=== PATIENT | female | born 1950 | race Caucasian/White ===

== ENCOUNTER 2024-09-02 12:15 | Outpatient (CLI) | payer MEDICARE, SELFPAY ==
[2024-09-02 12:49] LABS: Basophils % 0.7 % (0.1-2.0); Eosinophils # 0.1 K/mm3 (0.0-0.4); Eosinophils % 2.6 % (0.1-12.0); Hematocrit 35.8 % (37.0-47.0); Hemoglobin 11.5 g/dL (12.2-16.2); Lymphocytes # 1.5 K/mm3 (0.7-4.5); Lymphocytes % 35.7 % (10-50); Mean Corpuscular HGB Conc 32.1 g/dL (31.8-35.4); Mean Corpuscular Hemoglobin 27.4 pg (27.0-31.2); Mean Corpuscular Volume 85.4 fl (81-99); Mean Platelet Volume 10.6 fl (7.4-10.4); Monocytes # 0.5 K/mm3 (0.1-1.0); Monocytes % 11.2 % (1.7-9.3); Neutrophils # 2.1 K/mm3 (1.8-7.8); Neutrophils % 49.8 % (37.0-80.0); Platelet Count 209 K/mm3 (142-424); Red Blood Count 4.19 M/mm3 (4.20-5.40); Reticulocyte % (Auto) 1.3 % (0.9-3.2); White Blood Count 4.2 K/mm3 (4.8-10.8)
[2024-09-02 13:23] LABS: Albumin Level 4.6 g/dl (3.5-5.0); Chloride 102 mmol/L (98-107); Sodium 137 mmol/L (136-145)
[2024-09-02 13:25] LABS: Blood Urea Nitrogen 15 mg/dl (7-17); Estimated Glomerular Filt Rate 61 ml/min (>60); GFR (African American) 74 ML/MIN (>60)
[2024-09-02 13:26] LABS: Alanine Aminotransferase 19 U/L (12-78); Albumin/Globulin Ratio 1.8 (1.1-1.8); Alkaline Phosphatase 95 U/L (38-126); Aspartate Amino Transferase 28 U/L (14-36); Bilirubin,Total 0.4 mg/dl (0.2-1.3); Calcium 9.7 mg/dl (8.4-10.2); Carbon Dioxide 30 mmol/L (22.0-30.0); Globulin 2.5 g/dL (1.3-3.2); Glucose 105 mg/dl (74-100); Iron 57 ug/dL (37-170); Total Protein,Serum 7.1 g/dl (6.3-8.2)
[2024-09-02 13:51] LABS: Total Iron Binding Capacity 442 ug/dL (265-497)
[2024-09-02 14:12] LABS: Thyroid Stimulating Hormone 0.03 uIU/mL (0.465-4.68)
[2024-09-02 14:16] LABS: Ferritin 6.02 ng/ml (11.1-264)
[2024-09-02 14:29] LABS: Lactate Dehydrogenase 194 U/L (313-618)
[2024-09-02 15:20] LABS: Vitamin B12 387 pg/mL (239-931)
[2024-09-03 05:12] LABS: Haptoglobin 151 mg/dL (42-346)
[2024-09-04 12:21] LABS: Peripheral Smear Review Scanned Result
== END 2024-09-02 23:59 | disposition home or self-care (01) ==
LOC: LAB 12:16
PROVIDERS: Visit Provider Internal Medicine Medical Oncology
DX: D64.9 Anemia, unspecified (principal)
CPT/HCPCS: 36415; 80053; 82607; 82728; 82746; 83010; 83540; 83550; 83615; 84443; 85025; 85044; 86880

== ENCOUNTER 2024-11-04 11:06 | Outpatient (CLI) | payer MEDICARE, SELFPAY ==
--- OUTSIDE RECORDS SUMMARY | 2024-11-01 22:18 | XMS_ITS | Continuity of Care Document ---
Author Organization [facility] Phone Care Team Providers Care Auto Mechanic Supervisor Name Role Phone STEVEN LILLY Primary Attending MAYURI PEARCE Primary Care NASIR FAYE Unavailable Unavail able DAI EPSTEIN Surgeon Unavailable NASIR FAYE Surgeon Unavail able STEVEN LILLY Admitting NASIR FAYE Unavailable Unavail able ALLERGIES AND ADVERSE REACTIONS ALLERGIES AND ADVERSE REACTIONS Code System Allergy Substance Adverse Reaction Date Reaction (Severity) Comment Status Reported By Updated By GLUTEN (Free Text Allergy) Adverse reaction to substance unknown active [id number] on September 15, 2024 2:19:16 PM UT ASSESSMENTS Arthritis of left knee ; Essential hypertension ; Hyperlipidemia ; Total knee replacement ; PROBLEMS PATIENT PROBLEMS Code Description/Comments Category Status Upda denisse By [id number] Arthritis of left knee active [id number] on September 16, 2024 3:31:52 PM UT [id number] Essential hypertension active dw [id number] on September 16, 2024 6:25:42 PM UT [id number] Hyperlipidemia active [id number] on September 16, 2024 6:25:42 PM UT [id number] Total knee replacement active dw [id number] on September 16, 2024 6:25:42 PM UT RESULTS Patient: FREDO ESPINOSA Date of : [birth year] 8 LABORATORY RESULTS ORDER 300: TYPE/SCREEN (SHAWIN C: 48068-3) ORDER DATE: September 15, 2024 2:18:00 PM UTC Specimen Source: SERUM Specimen Type: Serum specime n PERFORMING LAB: [address] [id number] Result Comment: Final Result Date: September 16, 2024 10:00:00 AM UT (TECH: gfa) LOINC TEST FLAG [place] [address]-6 History of Procedure N Completed September 16, 2024 10:00:00 AM UTC (TECH: HL7) 97367-5 ABO and Rh group panel - Blood N A POSITIVE September 16, 2024 10:00:00 AM UTC (TECH: HL7) 890-4 Blood group antibody screen [Presence] in Serum or Plasma N NEGATIVE September 16, 2024 10:00:00 AM UTC (TECH: HL7) 01270-9 PROMIS item bank - cognitive function - version 2.0 N Completed September 16, 2024 10:00:00 AM UTC (TECH: gfa) ORDER 600: CELL COUNT AND DI FF BODY FLUID (LOINC: 60443-5) ORDER DATE: September 16, 2024 3:10:00 PM UTC Specimen Source: BODY FLUID Specimen Type: Body fluid sa mple PERFORMING LAB: [address] [id number] Result Comment: Final Result Date: September 16, 2024 6:29:00 PM UTC (TECH: ADB) LOINC TEST FLAG RES[place] [address]-6 Specimen source [Identifier] of Body fluid N SYNOVIAL September 16, 2024 6:29:00 PM UTC (TECH: ADB) 6824-7 Color of Body fluid N STRAW September 16, 2024 6:29:00 PM UTC (TECH: ADB) 9335-1 Appearance of Body fluid N SLIGHTLY HAZY September 16, 2024 6:29:00 PM UTC (TECH: ADB) 39164-6 Erythrocytes [#/volu me] in Body fluid N 1000 September 16, 2024 6:29:00 PM UTC (TECH: ADB) 23173-2 Leukocytes [#/volume ] in Body fluid H 520 #/uL 0 #/uL - 30 #/uL September 16, 2024 6:29:00 PM UTC (TECH: ADB) 50808-4 Polymorphonuclear cells/100 leukocytes in Body fluid N 2 % September 16, 2024 6:29:00 PM UTC (TECH: ADB) 92692-6 Lymphocytes [#/volum e] in Body fluid N 98 % September 16, 2024 6:29:00 PM UTC (TECH: ADB) 54895-6 Mononuclear cells [#/volume] in Body fluid N 0 % September 16, 2024 6:29:00 PM UTC (TECH: ADB) ORDER 900: GRAM STAIN (LOINC : 664-3) ORDER DATE: September 16, 2024 3:25:00 PM UTC Specimen Source: BODY FLUID Specimen Type: Body fluid sa mple PERFORMING LAB: [address] [id number] Result Comment: Final Result Date: September 17, 2024 1:35:00 PM UTC (TECH: AAC) LOINC TEST FLAG [place] [address]-3 Specimen source [Identifier] of Unspecified specimen N SYNOVIAL FLUID September 17, 2024 1:35:00 PM UTC (TECH: AAC) 664-3 Microscopic observation [Identifier] in Unspecified specimen by Gram stain N NO ORGANISMS September 17, 2024 1:35:00 PM UTC (TECH: AAC) 62120-5 Morphology [interpretation] in Blood Narrative N SEEN September 17 1:35:00 PM UTC (TECH: AAC) 76385-4 Leukocytes [Presence] in Unspecified specimen by Gram stain N OCCASIONAL September 17, 2024 1:35:00 PM UTC (TECH: AAC) 69980-0 Epithelial cells [Presence] in Unspecified specimen by Gram stain N NONE SEEN September 17, 2024 1:35:00 PM UTC (TECH: AAC) 53638-3 Yeast [Presence] in Unspecified specimen by Wet preparation N NO YST SEEN September 17, 2024 1:35:00 PM UTC (TECH: AAC) 65293-2 Gram positive bacteria identified [Interpretation] by Probe in Positive blood culture N PASS PASS September 17, 2024 1:35:00 PM UTC (TECH: AAC) 32274-2 Gram negative bacilli identified in Isolate by Organism specific culture N PASS PASS September 17, 2024 1:35:00 PM UTC (TECH: AAC) ORDER 1000: AFB SMEAR CULTUR E (LOINC: 8100-0) ORDER DATE: September 16, 2024 3:25:00 PM UTC Specimen Source: BODY FLUID Specimen Type: Body fluid sa mple PERFORMING LAB: [address] [id number] Result Comment: Final Result Date: September 16, 2024 3:17:00 PM UTC LOINC TEST FLAG RESULT [place] [address]-3 Mycobacterium sp [Presence] in Unspecified specimen by Organism specific culture N Negative September 16, 2024 3:17:00 PM UTC (TECH: LAB) 69216-3 Microscopic observation [Identifier] in Unspecified specimen by Acid fast stain N Negative September 16, 2024 3:17:00 PM UTC (TECH: LAB) 8100-0 Specimen preparation [Type] of Unspecified specimen N Direct Inoculation September 16, 2024 3:17:00 PM UTC ORDER 2600: GRAM STAIN (LOIN C: 664-3) ORDER DATE: September 16, 2024 3:38:00 PM UTC Specimen Source: GRAM STAIN Specimen Type: Gram stain me thod PERFORMING LAB: [address] [id number] Result Comment: Final Result Date: September 17, 2024 1:38:00 PM UTC (TECH: AAC) LOINC TEST FLAG [place] [address]-4 Specimen source [Identifier] of Unspecified specimen N SYNOVIAL TISS September 17, 2024 1:38:00 PM UTC (TECH: AAC) 664-3 Microscopic observation [Identifier] in Unspecified specimen by Gram stain N NO ORGANISMS September 17, 2024 1:38:00 PM UTC (TECH: AAC) 08816-6 Morphology [interpretation] in Blood Narrative N SEEN September 17 1:38:00 PM UTC (TECH: AAC) 15339-7 Leukocytes [Presence] in Unspecified specimen by Gram stain N NONE SEEN September 17, 2024 1:38:00 PM UTC (TECH: AAC) 90027-7 Epithelial cells [Presence] in Unspecified specimen by Gram stain N NONE SEEN September 17, 2024 1:38:00 PM UTC (TECH: AAC) 88800-9 Yeast [Presence] in Unspecified specimen by Wet preparation N NO YST SEEN September 17, 2024 1:38:00 PM UTC (TECH: AAC) 32047-6 Gram positive bacteria identified [Interpretation] by Probe in Positive blood culture N PASS PASS September 17, 2024 1:38:00 PM UTC (TECH: AAC) 40650-4 Gram negative bacilli identified in Isolate by Organism specific culture N PASS PASS September 17, 2024 1:38:00 PM UTC (TECH: AAC) ORDER 2700: AFB SMEAR CULTUR E (LOINC: 8100-0) ORDER DATE: September 16, 2024 3:38:00 PM UTC Specimen Source: SWAB Specimen Type: Swab PERFORMING LAB: [address] [id number] Result Comment: Final Result Date: September 16, 2024 3:30:00 PM UTC (TECH: LAB) LOINC TEST FLAG RES[place] [address]-0 Mycobacterium sp [Presence] in Unspecified specimen by Organism specific culture N Negative September 16, 2024 3:30:00 PM UTC (TECH: LAB) 38836-2 Microscopic observation [Identifier] in Unspecified specimen by Acid fast stain N Negative September 16, 2024 3:30:00 PM UTC (TECH: LAB) 8100-0 Specimen preparation [Type] of Unspecified specimen N Tissue Grinding September 16, 2024 3:30:00 PM UTC (TECH: LAB) ORDER 2800: CULTURE FUNGUS ( LOINC: 580-1) ORDER DATE: September 16, 2024 3:38:00 PM UTC Specimen Source: SWAB Specimen Type: Swab PERFORMING LAB: [address] [id number] Result Comment: October 15, 2024 3:11:00 PM UTC No yeast or mold isolated after 4 weeks. Result Comment: October 15, 2024 3:11:00 PM UTC Performed at: [facility] Result Comment: October 15, 2024 3:11:00 PM UTC [address] [place] [address] [phone] Result Comment: October 15, 2024 3:11:00 PM UTC Jackscrew Man: Rhys Alcala PhD, Phone: [phone] Result Comment: October 15, 2024 3:11:00 PM UTC Final Result Date: September 16, 2024 3:30:00 PM UTC (TECH: LAB) LOINC TEST FLAG RESULT REFERENCE RANGE UPDA DENISSE BY 580-1 Fungus identified in Unspecified specimen by Culture N Final report September 16 3:30:00 PM UTC (TECH: LAB) 93324-2 Fungus identified in Unspecified specimen N Comment September 16, 2024 3:30:00 PM UTC (TECH: LAB) ORDER 2900: AFB SMEAR CULTUR E (LOINC: 8100-0) ORDER DATE: September 16, 2024 3:45:00 PM UTC Specimen Source: SWAB Specimen Type: Swab PERFORMING LAB: [address] [id number] Result Comment: Final Result Date: September 16, 2024 3:30:00 PM UTC (TECH: LAB) LOINC TEST FLAG RESULT [place] [address]-6 Mycobacterium sp [Presence] in Unspecified specimen by Organism specific culture N Negative September 16, 2024 3:30:00 PM UTC (TECH: LAB) 25003-4 Microscopic observation [Identifier] in Unspecified specimen by Acid fast stain N Negative September 16, 2024 3:30:00 PM UTC (TECH: LAB) 8100-0 Specimen preparation [Type] of Unspecified specimen N Tissue Grinding September 16, 2024 3:30:00 PM UTC (TECH: LAB) ORDER 3100: CULTURE FUNGUS ( LOINC: 580-1) ORDER DATE: September 16, 2024 3:45:00 PM UTC Specimen Source: SWAB Specimen Type: Swab PERFORMING LAB: [address] [id number] Result Comment: October 15, 2024 3:11:00 PM UTC No yeast or mold isolated after 4 weeks. Result Comment: October 15, 2024 3:11:00 PM UTC Performed at: [facility] Result Comment: October 15, 2024 3:11:00 PM UTC [address] [place] [address] [id number] Result Comment: October 15, 2024 3:11:00 PM UTC Jackscrew Man: Rhys Alcala PhD, Phone: [phone] Result Comment: October 15, 2024 3:11:00 PM UTC Final Result Date: September 16, 2024 3:30:00 PM UTC (TECH: LAB) LOINC TEST FLAG RESULT REFERENCE RANGE UPDA DENISSE BY 580-1 Fungus identified in Unspecified specimen by Culture N Final report September 16 3:30:00 PM UTC (TECH: LAB) 13773-4 Fungus identified in Unspecified specimen N Comment September 16, 2024 3:30:00 PM UTC (TECH: LAB) ORDER 3300: GRAM STAIN (LOIN C: 664-3) ORDER DATE: September 16, 2024 3:45:00 PM UTC Specimen Source: GRAM STAIN Specimen Type: Gram stain me thod PERFORMING LAB: [address] [id number] Result Comment: Final Result Date: September 17, 2024 1:39:00 PM UTC (TECH: AAC) LOINC TEST FLAG RESULT [place] [address]-9 Specimen source [Identifier] of Unspecified specimen N SYNOVIAL TISS September 17, 2024 1:39:00 PM UTC (TECH: AAC) 664-3 Microscopic observation [Identifier] in Unspecified specimen by Gram stain N NO ORGANISMS September 17, 2024 1:39:00 PM UTC (TECH: AAC) 21143-5 Morphology [interpretation] in Blood Narrative N SEEN September 17 1:39:00 PM UTC (TECH: AAC) 89820-9 Leukocytes [Presence] in Unspecified specimen by Gram stain N OCCASIONAL September 17, 2024 1:39:00 PM UTC (TECH: AAC) 52220-3 Epithelial cells [Presence] in Unspecified specimen by Gram stain N NONE SEEN September 17, 2024 1:39:00 PM UTC (TECH: AAC) 45193-2 Yeast [Presence] in Unspecified specimen by Wet preparation N NO YST SEEN September 17, 2024 1:39:00 PM UTC (TECH: AAC) 06321-8 Gram positive bacteria identified [Interpretation] by Probe in Positive blood culture N PASS PASS September 17, 2024 1:39:00 PM UTC (TECH: AAC) 23728-7 Gram negative bacilli identified in Isolate by Organism specific culture N PASS PASS September 17, 2024 1:39:00 PM UTC (TECH: AAC) ORDER 3400: AFB SMEAR CULTUR E (LOINC: 8100-0) ORDER DATE: September 16, 2024 3:46:00 PM UTC Specimen Source: SWAB Specimen Type: Swab PERFORMING LAB: [address] [id number] Result Comment: Final Result Date: September 16, 2024 3:30:00 PM UTC (TECH: LAB) LOINC TEST FLAG RESULT [place] [address]-6 Mycobacterium sp [Presence] in Unspecified specimen by Organism specific culture N Negative September 16, 2024 3:30:00 PM UTC (TECH: LAB) 86814-8 Microscopic observation [Identifier] in Unspecified specimen by Acid fast stain N Negative September 16, 2024 3:30:00 PM UTC (TECH: LAB) 8100-0 Specimen preparation [Type] of Unspecified specimen N Tissue Grinding September 16, 2024 3:30:00 PM UTC (TECH: LAB) ORDER 3600: CULTURE FUNGUS ( LOINC: 580-1) ORDER DATE: September 16, 2024 3:46:00 PM UTC Specimen Source: SWAB Specimen Type: Swab PERFORMING LAB: [address] [id number] Result Comment: October 15, 2024 3:11:00 PM UTC No yeast or mold isolated after 4 weeks. Result Comment: October 15, 2024 3:11:00 PM UTC Performed at: [facility] Result Comment: October 15, 2024 3:11:00 PM UTC [address] [place] [address] [phone] Result Comment: October 15, 2024 3:11:00 PM UTC Jackscrew Man: Rhys Alcala PhD, Phone: [phone] Result Comment: October 15, 2024 3:11:00 PM UTC Final Result Date: September 16, 2024 3:30:00 PM UTC (TECH: LAB) LOINC TEST FLAG RESULT REFERENCE RANGE UPDA DENISSE BY 580-1 Fungus identified in Unspecified specimen by Culture N Final report September 16 3:30:00 PM UTC (TECH: LAB) 65844-1 Fungus identified in Unspecified specimen N Comment September 16, 2024 3:30:00 PM UTC (TECH: LAB) ORDER 3800: GRAM STAIN (LOIN C: 664-3) ORDER DATE: September 16, 2024 3:46:00 PM UTC Specimen Source: GRAM STAIN Specimen Type: Gram stain me thod PERFORMING LAB: [address] [id number] Result Comment: Final Result Date: September 17, 2024 1:36:00 PM UTC (TECH: AAC) LOINC TEST FLAG RESULT [place] [address]-9 Specimen source [Identifier] of Unspecified specimen N SYNOVIAL TISS September 17, 2024 1:36:00 PM UTC (TECH: AAC) 664-3 Microscopic observation [Identifier] in Unspecified specimen by Gram stain N NO ORGANISMS September 17, 2024 1:36:00 PM UTC (TECH: AAC) 54219-8 Morphology [interpretation] in Blood Narrative N SEEN September 17 1:36:00 PM UTC (TECH: AAC) 64514-1 Leukocytes [Presence] in Unspecified specimen by Gram stain N OCCASIONAL September 17, 2024 1:36:00 PM UTC (TECH: AAC) 81295-7 Epithelial cells [Presence] in Unspecified specimen by Gram stain N NONE SEEN September 17, 2024 1:36:00 PM UTC (TECH: AAC) 70691-0 Yeast [Presence] in Unspecified specimen by Wet preparation N NO YST SEEN September 17, 2024 1:36:00 PM UTC (TECH: AAC) 10458-5 Gram positive bacteria identified [Interpretation] by Probe in Positive blood culture N PASS PASS September 17, 2024 1:36:00 PM UTC (TECH: AAC) 46669-4 Gram negative bacilli identified in Isolate by Organism specific culture N PASS PASS September 17, 2024 1:36:00 PM UTC (TECH: AAC) ORDER 5100: FUNGAL ANTIBODIE S DID (LOINC: 14712-0) ORDER DATE: September 17, 2024 7:51:00 PM UTC Specimen Source: SERUM Specimen Type: Serum specime n PERFORMING LAB: [address] [id number] Result Comment: September 21 5:08:00 PM UTC Performed at: [facility] Result Comment: September 21, 2024 5:08:00 PM UTC [address] [place] [address] [id number] Result Comment: September 21, 2024 5:08:00 PM UTC Jackscrew Man: Tristan Mendez MD, Phone: [phone] Result Comment: September 21, 2024 5:08:00 PM UTC Final Result Date: September 16, 2024 12:20:00 PM UTC (TECH: LAB) LOINC TEST FLAG RESULT [place] [address]-0 Aspergillus fumigatu s Ab [Presence] in Serum by Immune diffusion (ID) N Negative Neg:<1:1 September 16, 2024 12:20:00 PM UTC (TECH: LAB) 76783-5 Aspergillus flavus A b [Presence] in Serum by Immune diffusion (ID) N Negative Neg:<1:1 September 16, 2024 12:20:00 PM UTC (TECH: LAB) 35703-7 Aspergillus niger Ab [Presence] in Serum by Immune diffusion (ID) N Negative Neg:<1:1 September 16, 2024 12:20:00 PM UTC (TECH: LAB) 13786-3 Blastomyces dermatit idis Ab [Titer] in Serum N Negative Neg:<1:1 September 16 12:20:00 PM UTC (TECH: LAB) LABORATORY NARRATIVE RESULTS Information is not available RADIOLOGY RESULTS Information is not available PATHOLOGY NARRATIVE RESULTS ORDER 3900: PATHOLOGY SPECIM EN (LOINC: 75287-1) ORDER DATE: September 16, 2024 3:47:00 PM UTC Specimen Source: PATH Specimen Type: Refer to path ology laboratory PERFORMING LAB: [address] [id number] Final Result Date: September 17, 2024 9:38:00 PM UTC TEST: PATHOLOGY SPECIMEN MICROBIOLOGY RESULTS No Micro Labs/Results Exist for Patient BLOOD ADMIN RESULTS Information is not available TREATMENT PLAN DISCHARGE MEDICATIONS Status RXNORM Medication Dose Route Frequency Dates Comments U pdated By Continued 244430 Olmesartan Medoxomil-HCTZ Oral Tablet 20-12.5 MG 1 TAB ORAL ONCE DAILY Prescri bed: September 16, 2024 10:15:4 4 PM UT [id number] on September 16, 2024 10:15:44 PM UT Continued 057539 Montelukast Sodium Oral Tablet 10 MG 10 MG ORAL ONCE DAILY Prescri bed: September 16, 2024 10:15:4 4 PM UT [id number] on September 16, 2024 10:15:44 PM UT Continued 0367547 Melatonin ER Ora l Tablet Extended Release 10 MG 10 MG ORAL AT BEDTIME Prescri bed: September 16, 2024 10:15:4 4 PM UT [id number] on September 16, 2024 10:15:44 PM UT Continued Magnesium Citrat e Oral Tablet 200 MG 800 MG ORAL ONCE DAILY Prescri bed: September 16, 2024 10:15:4 4 PM [facility] [id number] on September 16, 2024 10:15:44 PM [facility] Continued 742960 Levocetirizine Dihydrochloride Oral Tablet 5 MG 5 MG ORAL ONCE DAILY Prescri bed: September 16, 2024 10:15:4 4 PM [facility] [id number] on September 16, 2024 10:15:44 PM [facility] Continued 752342 LORazepam Oral Tablet 2 MG 2 MG ORAL AT BEDTIME Prescri bed: September 16, 2024 10:15:4 4 PM [facility] [id number] on September 16, 2024 10:15:44 PM [facility] Continued 004464 Calcium + Vitami n D3 Oral Tablet 600-10 MG-MCG 1 TAB ORAL ONCE DAILY Prescri bed: September 16, 2024 10:15:4 4 PM [facility] [id number] on September 16, 2024 10:15:44 PM [facility] Continued 683638 Synthroid Oral Tablet 125 MCG 125 MCG ORAL ONCE DAILY Prescri bed: September 16, 2024 10:15:4 4 PM [facility] [id number] on September 16, 2024 10:15:44 PM [facility] Continued 026361 Rosuvastatin Calcium Oral Tablet 20 MG 20 MG ORAL ONCE DAILY Prescri bed: September 16, 2024 10:15:4 4 PM [facility] [id number] on September 16, 2024 10:15:44 PM [facility] Continued 617129 Omeprazole Oral Capsule Delayed Release 40 MG 40 MG ORAL ONCE DAILY Prescri bed: September 16, 2024 10:15:4 4 PM [facility] [id number] on September 16, 2024 10:15:44 PM [facility] PATIENT OPEN ORDERS Code System Description Frequency Occurrences Priority Start Date Ordering Physician Updated By Patient open order informati on is not available. SCHEDULED PROCEDURES Code System Description Status Scheduled Date Upd ated By Patient scheduled procedure information is not available. MEDICATIONS HOME MEDICATIONS Status RXNORM [facility] Medication Dose Route Frequency Dates Comments Reported By Updated By Active 018193 29725 23125 0 Omeprazole Oral Capsule Delayed Release 40 MG 40.0 MG ORAL DAILY Last Dose: September 16, 2024 9:30:0 0 AM [facility] [id number] on September 16, 2024 12:09:46 PM [facility] Active 559725 18529 01977 3 Olmesartan Medoxomil-HC TZ Oral Tablet 20-12.5 MG 1.0 TAB ORAL DAILY Last Dose: September 16, 2024 9:30:0 0 AM [facility] [id number] on September 16, 2024 12:09:36 PM [facility] Active 70816 99367 0 Calcium + Vitamin D3 Oral Tablet 600-10 MG-MCG 1.0 TAB ORAL DAILY Last Dose: September 16, 2024 12:00: 00 AM [facility] [id number] on September 16, 2024 12:07:14 PM [facility] Active 929085 05476 31880 1 Rosuvastatin Calcium Oral Tablet 20 MG 20.0 MG ORAL DAILY Last Dose: September 16, 2024 12:00: 00 AM [facility] [id number] on September 16, 2024 12:10:10 PM [facility] Active 227051 38121 49931 9 Synthroid Oral Tablet 125 MCG 125.0 MCG ORAL DAILY Last Dose: September 16, 2024 12:00: 00 AM [facility] [id number] on September 16, 2024 12:10:26 PM [facility] Active 884305 83535 42020 0 Montelukast Sodium Oral Tablet 10 MG 10.0 MG ORAL DAILY Last Dose: September 16, 2024 12:00: 00 AM [facility] [id number] on September 16, 2024 12:08:42 PM [facility] Active 327097 63619 65041 0 Levocetirizi ne Dihydrochlor felipe Oral Tablet 5 MG 5.0 MG ORAL DAILY Last Dose: September 16, 2024 12:00: 00 AM [facility] [id number] on September 16, 2024 12:07:54 PM [facility] Active 81084 77441 0 Magnesium Citrate Oral Tablet 200 MG 800.0 MG ORAL DAILY Last Dose: September 16, 2024 12:00: 00 AM [facility] [id number] on September 16, 2024 12:08:14 PM [facility] Active 966161 76242 76441 5 LORazepam Oral Tablet 2 MG 2.0 MG ORAL BEDTIME Last Dose: September 16, 2024 12:00: 00 AM [facility] [id number] on September 16, 2024 12:08:06 PM [facility] Active 0495332 46352 19332 8 Melatonin ER Oral Tablet Extended Release 10 MG 10.0 MG ORAL BEDTIME Last Dose: September 16, 2024 12:00: 00 AM [facility] [id number] on September 16, 2024 12:08:27 PM [facility] Active 732828 86760 82590 8 traMADol HCl Oral Tablet 50 MG 50.0 MG ORAL PRN Last Dose: September 12, 2024 11:00: 00 AM UT takes as needed for pain [id number] on September 16, 2024 3:37:35 PM UT DISCHARGE MEDICATIONS Status RXNORM [facility] Medication Dose Route Frequency Dates Comments Physician Updated By Continue d 108612 9507 7090 103 Olmesartan Medoxomil-H CTZ Oral Tablet 20-12.5 MG 1.0 TAB ORAL ONCE DAILY Prescr ibed: September 16, 2024 10:15: 44 PM UT AGUILAR DUNG A PA [id number] on September 16, 2024 10:15:44 PM UT Continue d 273002 6595 8008 130 Montelukast Sodium Oral Tablet 10 MG 10.0 MG ORAL ONCE DAILY Prescr ibed: September 16, 2024 10:15: 44 PM UT AGUILAR DUNG A PA [id number] on September 16, 2024 10:15:44 PM UT Continue d 2886799 1487 5028 028 Melatonin ER Oral Tablet Extended Release 10 MG 10.0 MG ORAL AT BEDTIME Prescr ibed: September 16, 2024 10:15: 44 PM UT AGUILAR DUNG A PA [id number] on September 16, 2024 10:15:44 PM UT Continue d 3373 9001 290 Magnesium Citrate Oral Tablet 200 MG 800.0 MG ORAL ONCE DAILY Prescr ibed: September 16, 2024 10:15: 44 PM UT AGUILAR DUNG A PA [id number] on September 16, 2024 10:15:44 PM UT Continue d 322560 1019 4 690 Levocetiriz ine Dihydrochlo ride Oral Tablet 5 MG 5.0 MG ORAL ONCE DAILY Prescr ibed: September 16, 2024 10:15: 44 PM UT AGUILAR DUNG A PA [id number] on September 16, 2024 10:15:44 PM UT Continue d 449178 9497 4077 405 LORazepam Oral Tablet 2 MG 2.0 MG ORAL AT BEDTIME Prescr ibed: September 16, 2024 10:15: 44 PM UT AGUILAR DUNG A PA [id number] on September 16, 2024 10:15:44 PM UTC Continue d 140446 6206 5007 660 Calcium + Vitamin D3 Oral Tablet 600-10 MG-MCG 1.0 TAB ORAL ONCE DAILY Prescr ibed: September 16, 2024 10:15: 44 PM UT JEFF MORILLO [id number] on September 16, 2024 10:15:44 PM UT Continue d 600637 3067 4706 819 Synthroid Oral Tablet 125 MCG 125.0 MCG ORAL ONCE DAILY Prescr ibed: September 16, 2024 10:15: 44 PM UT AGUILAR DUNG Lor MORILLO [id number] on September 16, 2024 10:15:44 PM UTC Continue d 531570 2899 5058 481 Rosuvastati n Calcium Oral Tablet 20 MG 20.0 MG ORAL ONCE DAILY Prescr ibed: September 16, 2024 10:15: 44 PM UT AGUILAR DUNG MORILLO [id number] on September 16, 2024 10:15:44 PM UT Continue d 614690 1125 5014 600 Omeprazole Oral Capsule Delayed Release 40 MG 40.0 MG ORAL ONCE DAILY Prescr ibed: September 16, 2024 10:15: 44 PM [facility] AGUILAR DUNG Horowitz YISEL [id number] on September 16, 2024 10:15:44 PM [facility] INPATIENT MEDICATIONS Status RXNORM [facility] Medication Dose Route Frequency Rat e Quantity Dates Comments Physician Updated By Thao inued [id number] 9553 3716 601 celeCOXIB (CeleBREX) 200 MG CAPS 400.0 MG ORAL ONE TIME ADMINISTRA TION (UNSCHEDUL ED) Start: September 16, 2024 10:00: 00 AM UT End: September 16, 2024 12:18: 41 PM [facility] JORGE PHOENIX [id number] on September 16, 2024 12:18:00 PM [facility] Discont inued 0090 4673 061 acetaminoph en (TYLENOL) 500 MG TABS 1000. 0 MG ORAL ONE TIME ADMINISTRA TION (UNSCHEDUL ED) Start: September 16, 2024 10:00: 00 AM UT End: September 16, 2024 12:18: 42 PM [facility] JORGE PHOENIX [id number] on September 16, 2024 12:18:00 PM UT Discont inued [id number] 5538 2100 001 tranexamic acid (CYKLOKAPRO N) 1000 MG SOLN 1000. 0 MG INTRAV ENOUS ONE TIME ONLY (SCHEDULED DOSE) 300.0 ML/HR Start: September 16, 2024 10:00: 00 AM UTC End: September 16, 2024 10:15: 44 PM UTC JORGE ALBAN [id number] on September 17, 2024 4:25:00 AM UTC Discont inued [id number] 5285 8004 941 sodium chloride 0.9% SOLN 50.0 ML INTRAV ENOUS ONE TIME ONLY (SCHEDULED DOSE) 300.0 ML/HR Start: September 16, 2024 10:00: 00 AM UTC End: September 16, 2024 10:15: 44 PM UTC JORGE ALBAN [id number] on September 17, 2024 4:25:00 AM UTC Discont inued [id number] 4904 2100 001 tranexamic acid (CYKLOKAPRO N) 1000 MG SOLN 1000. 0 MG INTRAV ENOUS ONE TIME ONLY (SCHEDULED DOSE) 300.0 ML/HR Start: September 16, 2024 10:00: 00 AM UTC End: September 16, 2024 12:18: 42 PM UTC JORGE ALBAN [id number] on September 16, 2024 12:18:00 PM UTC Discont inued [id number] 7743 8004 941 sodium chloride 0.9% SOLN 50.0 ML INTRAV ENOUS ONE TIME ONLY (SCHEDULED DOSE) 300.0 ML/HR Start: September 16, 2024 10:00: 00 AM UTC End: September 16, 2024 12:18: 42 PM UTC JORGE ALBAN [id number] on September 16, 2024 12:18:00 PM UTC Discont inued [id number] 3739 5623 105 ceFAZolin (ANCEF) 2 GM SOLR 2.0 GM INTRAV ENOUS ONE TIME ADMINISTRA TION (UNSCHEDUL ED) Start: September 16, 2024 10:00: 00 AM UTC End: September 16, 2024 12:28: 48 PM UTC JORGE ALBAN [id number] on September 16, 2024 12:28:00 PM UTC Discont inued [id number] 5820 8011 704 LACTATED RINGERS SOLN 1000. 0 ML INTRAV ENOUS ONE TIME ADMINISTRA TION (UNSCHEDUL ED) 25.0 ML/HR Start: September 15, 2024 4:41:0 0 PM UTC End: September 16, 2024 12:18: 40 PM UTC LAQUITA SALGADO Radha [id number] on September 16, 2024 12:18:00 PM UTC Discont inued [id number] 0155 8011 704 LACTATED RINGERS SOLN 1000. 0 ML INTRAV ENOUS ONE TIME ONLY (PACU) 25.0 ML/HR Start: September 15, 2024 4:41:0 0 PM UTC End: September 16, 2024 6:29:2 8 PM UTC COELHOAV Garcia [id number] on September 16, 2024 6:29:00 PM UTC Discont inued [id number] 0040 9117 630 meperidine (DEMEROL) 25 MG/ML SOLN 12.5 MG INTRAV ENOUS NEEDED (PACU) Start: September 15, 2024 4:41:0 0 PM UTC End: September 16, 2024 6:29:2 8 PM UTC LAQUITA Garcia [id number] on September 16, 2024 6:29:00 PM UTC Discont inued [id number] 0040 9117 630 meperidine (DEMEROL) 25 MG/ML SOLN 25.0 MG INTRAV ENOUS NEEDED (PACU) Start: September 15, 2024 4:41:0 0 PM UTC End: September 16, 2024 6:29:2 8 PM UTC LAQUITA Garcia [id number] on September 16, 2024 6:29:00 PM UTC Discont inued [id number] 0064 1624 725 fentaNYL (SUBLIMAZE) 50 MGC/ML SOLN 25.0 MCG INTRAV ENOUS EVERY 5 MINUTES NEEDED (PACU) Start: September 15, 2024 4:41:0 0 PM UTC End: September 16, 2024 6:29:2 8 PM UTC LAQUITA Garcia [id number] on September 16, 2024 6:29:00 PM UTC Discont inued 6960081 0064 1624 725 fentaNYL (SUBLIMAZE) 50 MGC/ML SOLN 50.0 MCG INTRAV ENOUS EVERY 5 MINUTES NEEDED (PACU) Start: September 15, 2024 4:41:0 0 PM UTC End: September 16, 2024 6:29:2 8 PM UTC LAQUITA Garcia [id number] on September 16, 2024 6:29:00 PM UTC Discont inued [id number] 8999 9426 401 HYDROmorpho ne (DILAUDID) 0.5 MG/0.5ML SOLN 0.5 MG INTRAV ENOUS EVERY 10 MINUTES NEEDED (PACU) Start: September 15, 2024 4:41:0 0 PM UTC End: September 16, 2024 6:29:2 8 PM UTC LAQUITA Garcia [id number] on September 16, 2024 6:29:00 PM UTC Discont inued [id number] 9254 9128 331 HYDROmorpho ne (DILAUDID) 1 MG/ML SOLN 1.0 MG INTRAV ENOUS EVERY 10 MINUTES NEEDED (PACU) Start: September 15, 2024 4:41:0 0 PM UTC End: September 16, 2024 6:29:2 8 PM UTC LAQUITA Garcia [id number] on September 16, 2024 6:29:00 PM UTC Discont inued [id number] 0018 8010 250 PERCOCET 5-325 MG TABS 1.0 TAB ORAL ONE TIME ADMINISTRA TION (UNSCHEDUL ED) Start: September 15, 2024 4:41:0 0 PM UTC End: September 16, 2024 6:29:2 8 PM UTC LAQUITA Garcia [id number] on September 16, 2024 6:29:00 PM UTC Discont inued [id number] 5260 8010 250 PERCOCET 5-325 MG TABS 2.0 TAB ORAL ONE TIME ADMINISTRA TION (UNSCHEDUL ED) Start: September 15, 2024 4:41:0 0 PM UTC End: September 16, 2024 6:29:2 8 PM UTC LAQUITA Garcia [id number] on September 16, 2024 6:29:00 PM UTC Discont inued [id number] 1530 5613 000 ondansetron (ZOFRAN) INJ 4 MG/2 ML SOLN 4.0 MG INTRAV ENOUS NEEDED (PACU) Start: September 15, 2024 4:41:0 0 PM UTC End: September 16, 2024 6:29:2 8 PM UTC LAQUITA Garcia [id number] on September 16, 2024 6:29:00 PM UTC Discont inued [id number] 0051 7970 201 droperidol (INAPSINE) 2.5 MG/ML SOLN 0.625 MG INTRAV ENOUS NEEDED (PACU) Start: September 15, 2024 4:41:0 0 PM UTC End: September 16, 2024 6:29:2 8 PM UTC LAQUITA Garcia [id number] on September 16, 2024 6:29:00 PM UTC Discont inued 0551438 0416 3041 112 midazolam (VERSED) 2 MG/2 ML SOLN 1.0 MG INTRAV ENOUS EVERY FIVE MINUTES NEEDED Start: September 15, 2024 4:41:0 0 PM UTC End: September 16, 2024 6:29:2 8 PM UTC LAQUITA Garcia [id number] on September 16, 2024 6:29:00 PM UTC Discont inued [id number] 3736 3041 112 midazolam (VERSED) 2 MG/2 ML SOLN 2.0 MG INTRAV ENOUS NEEDED (PACU) Start: September 15, 2024 4:41:0 0 PM UTC End: September 16, 2024 6:29:2 8 PM UTC LAQUITA Garcia [id number] on September 16, 2024 6:29:00 PM UTC Discont inued [id number] 7886 1092 825 promethazin e (PHENERGAN) 25 MG/ML SOLN 12.5 MG INTRAV ENOUS NEEDED (PACU) Start: September 15, 2024 4:41:0 0 PM UTC End: September 16, 2024 10:15: 44 PM UTC LAQUITA Garcia [id number] on September 17, 2024 4:25:00 AM UTC Discont inued [phone] [phone] promethazin e (PHENERGAN) 12.5 MG GEL 12.5 MG TOPICA L NEEDED (PACU) Start: September 15, 2024 4:41:0 0 PM UTC End: September 16, 2024 6:29:2 9 PM UTC LAQUITA Garcia [id number] on September 16, 2024 6:29:00 PM UTC Discont inued [id number] 0592 3028 635 ropivacaine (NAROPIN) 0.5% 5 MG/ML SOLN 150.0 MG EPIDUR AL ONE TIME ONLY (SCHEDULED DOSE) Start: September 16, 2024 1:29:0 0 PM UTC End: September 16, 2024 1:29:0 0 PM UTC [facility] INTERFAC ED on September 16, 2024 1:29:00 PM UTC Discont inued [id number] 2704 9909 332 PACU - fentaNYL (SUBLIMAZE) 100 MCG/2ML SOLN 100.0 MCG INTRAV ENOUS ONE TIME ONLY (SCHEDULED DOSE) Start: September 16, 2024 1:37:0 0 PM UTC End: September 16, 2024 1:37:0 0 PM UTC [facility] INTERFAC ED on September 16, 2024 1:37:00 PM UTC Discont inued [id number] 1707 3048 227 lidocaine 1%-epi 1:857030 SOLN 20.0 ML ONE TIME ONLY (SCHEDULED DOSE) Start: September 16, 2024 2:11:0 0 PM UTC End: September 16, 2024 2:11:0 0 PM UTC [facility] INTERFAC ED on September 16, 2024 2:10:00 PM UTC Discont inued [id number] 5515 0016 830 bupivacaine PF 0.25% SOLN 30.0 ML EPIDUR AL ONE TIME ONLY (SCHEDULED DOSE) Start: September 16, 2024 2:11:0 0 PM UTC End: September 16, 2024 2:11:0 0 PM UTC [facility] INTERFAC ED on September 16, 2024 2:10:00 PM UTC Discont inued 621978 0682 2200 001 cloNIDine 100 MCG/ML SOLN 1000. 0 MCG INTRAV ENOUS ONE TIME ONLY (SCHEDULED DOSE) Start: September 16, 2024 2:12:0 0 PM UTC End: September 16, 2024 2:12:0 0 PM UTC [facility] INTERFAC ED on September 16, 2024 2:10:00 PM UTC Discont inued 3443 5867 164 NOZIN NASAL OIL RIG DRILLER POPSWAB SWAB 1.0 EA NASAL TWICE A DAY Start: September 16, 2024 10:15: 44 PM UTC End: September 16, 2024 10:15: 44 PM UTC DOE STATON [id number] on September 17, 2024 4:25:00 AM UTC Discont inued 1006 4040 546 sodium chloride 0.9% FLUSH 10 ML SOLN 10.0 ML INTRAV ENOUS NEEDED Start: September 16, 2024 3:31:0 0 PM UTC End: September 16, 2024 10:15: 44 PM UTC DOE STATON [id number] on September 17, 2024 4:25:00 AM UTC Discont inued [id number] 2457 8004 304 sodium chloride 0.45% SOLN 1000. 0 ML INTRAV ENOUS CONT 75.0 ML/HR Start: September 16, 2024 3:31:0 0 PM UTC End: September 16, 2024 10:15: 44 PM UTC DOE STATON [id number] on September 17, 2024 4:25:00 AM UTC Discont inued 0090 4053 961 multiple vitamin (ONE-A-DAY) TABS 1.0 TAB ORAL ONCE DAILY Start: September 16, 2024 10:15: 44 PM UTC End: September 16, 2024 10:15: 44 PM UTC DOE STATON [id number] on September 17, 2024 4:25:00 AM UTC Discont inued [id number] 2335 5613 000 ondansetron (ZOFRAN) INJ 4 MG/2 ML SOLN 4.0 MG INTRAV ENOUS EVERY EIGHT HOURS NEEDED Start: September 16, 2024 3:31:0 0 PM UTC End: September 16, 2024 10:15: 44 PM UTC DOE STATON [id number] on September 17, 2024 4:25:00 AM UTC Discont inued 0323638 0072 7012 901 docusate sodium (COLACE) 100 MG CAPS 100.0 MG ORAL EVERY TWELVE HOURS NEEDED Start: September 16, 2024 3:31:0 0 PM UTC End: September 16, 2024 10:15: 44 PM UTC DOE STATON [id number] on September 17, 2024 4:25:00 AM UTC Discont inued [id number] 1796 7012 901 docusate sodium (COLACE) 100 MG CAPS 100.0 MG ORAL ONCE DAILY Start: September 16, 2024 10:15: 44 PM UTC End: September 16, 2024 10:15: 44 PM UTC DOE STATON [id number] on September 17, 2024 4:25:00 AM UTC Discont inued 0012 1043 130 MILK OF MAGNESIA 7.75 % 400 MG/5 ML SUSP 15.0 ML ORAL ONCE DAILY NEEDED Start: September 16, 2024 3:31:0 0 PM UTC End: September 16, 2024 10:15: 44 PM UTC DOE STATON [id number] on September 17, 2024 4:25:00 AM UTC Discont inued 429162 9554 4705 012 BISACODYL 10 MG SUPP 10.0 MG PER RECTUM - WARE FINISHER AL ONCE DAILY NEEDED Start: September 16, 2024 3:31:0 0 PM UTC End: September 16, 2024 10:15: 44 PM UTC DOE STATON [id number] on September 17, 2024 4:25:00 AM UTC Discont inued [id number] 9678 1039 708 famotidine (PEPCID) 20 MG TABS 20.0 MG ORAL TWICE A DAY Start: September 16, 2024 10:15: 44 PM UTC End: September 16, 2024 10:15: 44 PM UT DOESHANTEL STATON [id number] on September 17, 2024 4:25:00 AM UTC Discont inued 431639 2953 0041 501 cyclobenzap rine (FLEXERIL) 10 MG TABS 10.0 MG ORAL EVERY EIGHT HOURS NEEDED Start: September 16, 2024 3:31:0 0 PM UTC End: September 16, 2024 10:15: 44 PM UT DOE STATON [id number] on September 17, 2024 4:25:00 AM UTC Discont inued 949011 2314 4018 901 zolpidem tartrate (AMBIEN) 5 MG TABS 5.0 MG ORAL AT BEDTIME NEEDED Start: September 16, 2024 10:15: 44 PM UTC End: September 16, 2024 10:15: 44 PM UTC DOESHANTEL STATON [id number] on September 17, 2024 4:25:00 AM UTC Discont inued 1653544 5422 1533 925 ceFAZolin (ANCEF) 2 GM SOLR 2.0 GM INTRAV ENOUS EVERY SIX HOURS 100.0 ML/HR Start: September 16, 2024 6:00:0 0 PM UTC End: September 16, 2024 10:15: 44 PM UTC DOE STATON [id number] on September 17, 2024 4:25:00 AM UTC Discont inued [id number] 4643 8055 311 sodium chloride 0.9% MB+ SOLN 50.0 ML INTRAV ENOUS EVERY SIX HOURS 100.0 ML/HR Start: September 16, 2024 6:00:0 0 PM UTC End: September 16, 2024 10:15: 44 PM UT DOE STATON [id number] on September 17, 2024 4:25:00 AM UTC Discont inued 9613914 8160 6055 262 oxyCODONE (ROXICODONE ) 5 MG TABS 5.0 MG ORAL EVERY SIX HOURS NEEDED Start: September 16, 2024 3:31:0 0 PM UTC End: September 16, 2024 10:15: 44 PM UT DOE STATON [id number] on September 17, 2024 4:25:00 AM UTC Discont inued 7139 9862 701 ASPIRIN LOW DOSE 81 MG TBEC 81.0 MG ORAL TWICE A DAY Start: September 16, 2024 10:15: 44 PM UTC End: September 16, 2024 10:15: 44 PM UT DOE STATON [id number] on September 17, 2024 4:25:00 AM UTC Discont inued 0090 4673 061 acetaminoph en (TYLENOL) 500 MG TABS 1000. 0 MG ORAL EVERY SIX HOURS NEEDED Start: September 16, 2024 3:31:0 0 PM UTC End: September 16, 2024 10:15: 44 PM UT DOE STATON [id number] on September 17, 2024 4:25:00 AM UTC Discont inued 581337 4276 2073 030 acetaminoph en (TYLENOL) 650 MG SUPP 650.0 MG PER RECTUM - WARE FINISHER AL EVERY FOUR HOURS NEEDED Start: September 16, 2024 3:31:0 0 PM UTC End: September 16, 2024 10:15: 44 PM UT DOE STATON [id number] on September 17, 2024 4:25:00 AM UTC Discont inued 342203 8614 4081 501 montelukast sodium (SINGULAIR) 10 MG TABS 10.0 MG ORAL ONCE DAILY Start: September 17, 2024 1:00:0 0 PM UTC End: September 16, 2024 10:49: 00 PM UT DOE STATON [id number] on September 17, 2024 4:25:00 AM UT Discont inued Free Text Med Melatonin ER Oral Tablet Extended Release 10 MG 10.0 MG ORAL AT BEDTIME Start: September 17, 2024 1:00:0 0 AM UT End: September 16, 2024 10:49: 00 PM [facility] DOE STATON [id number] on September 16, 2024 3:41:00 PM UT Discont inued Free Text Med Magnesium Citrate Oral Tablet 200 MG 800.0 MG ORAL ONCE DAILY Start: September 17, 2024 1:00:0 0 PM UT End: September 16, 2024 10:49: 00 PM [facility] DEO STATON [id number] on September 16, 2024 3:43:00 PM [facility] Discont inued Free Text Med LORazepam Oral Tablet 2 MG 2.0 MG ORAL AT BEDTIME Start: September 17, 2024 1:00:0 0 AM UT End: September 16, 2024 10:49: 00 PM [facility] DOE STATON [id number] on September 16, 2024 3:43:00 PM UT Discont inued [id number] 0341 4706 811 levothyroxi ne (SYNTHROID) 125 MCG TABS 125.0 MCG ORAL ONCE DAILY Start: September 17, 2024 1:00:0 0 PM UT End: September 16, 2024 10:49: 00 PM [facility] DOE STATON [id number] on September 17, 2024 4:25:00 AM UT Discont inued Free Text Med Rosuvastati n Calcium Oral Tablet 20 MG 20.0 MG ORAL ONCE DAILY Start: September 17, 2024 1:00:0 0 PM UT End: September 16, 2024 10:49: 00 PM [facility] DOE STATON [id number] on September 16, 2024 3:44:00 PM UT Discont inued Free Text Med Omeprazole Oral Capsule Delayed Release 40 MG 40.0 MG ORAL ONCE DAILY Start: September 17, 2024 1:00:0 0 PM UT End: September 16, 2024 10:49: 00 PM [facility] DOE STATON [id number] on September 16, 2024 3:46:00 PM UTC Discont inued Free Text Med Olmesartan Medoxomil-H CTZ Oral Tablet 20-12.5 MG 1.0 TAB ORAL ONCE DAILY Start: September 17, 2024 1:00:0 0 PM UT End: September 16, 2024 10:49: 00 PM UT DOE STATON [id number] on September 16, 2024 3:48:00 PM UT Discont inued Free Text Med Levocetiriz ine Dihydrochlo ride Oral Tablet 5 MG 5.0 MG ORAL ONCE DAILY Start: September 17, 2024 1:00:0 0 PM UT End: September 16, 2024 10:49: 00 PM UT DOE STATON [id number] on September 16, 2024 3:51:00 PM UT Discont inued Free Text Med Calcium + Vitamin D3 Oral Tablet 600-10 MG-MCG 1.0 TAB ORAL ONCE DAILY Start: September 17, 2024 1:00:0 0 PM UT End: September 16, 2024 10:49: 00 PM [facility] DOE STATON [id number] on September 16, 2024 3:53:00 PM UT Discont inued [id number] 6730 8015 745 melatonin 5 MG TABS 10.0 MG ORAL AT BEDTIME Start: September 16, 2024 10:15: 44 PM UT End: September 16, 2024 10:15: 44 PM [facility] DOE STATON [id number] on September 17, 2024 4:25:00 AM UT Discont inued 6498 0033 901 magnesium oxide (MAG-OX) 400 MG TABS 800.0 MG ORAL ONCE DAILY Start: September 16, 2024 10:15: 44 PM UT End: September 16, 2024 10:15: 44 PM [facility] DOE STATON [id number] on September 17, 2024 4:25:00 AM UTC Discont inued 760120 1664 1024 105 LORazepam (ATIVAN) 1 MG TABS 2.0 MG ORAL AT BEDTIME Start: September 16, 2024 10:15: 44 PM UT End: September 16, 2024 10:15: 44 PM UT DOE STATON [id number] on September 17, 2024 4:25:00 AM UT Discont inued 925332 0791 9080 920 atorvastati n (LIPITOR) 20 MG TABS 40.0 MG ORAL ONCE DAILY Start: September 17, 2024 1:00:0 0 PM UTC End: September 16, 2024 10:49: 00 PM UT DOE STATON [id number] on September 16, 2024 3:45:00 PM UTC Discont inued 246109 3672 9020 920 atorvastati n (LIPITOR) 20 MG TABS 40.0 MG ORAL ONCE DAILY Start: September 16, 2024 10:15: 44 PM UTC End: September 16, 2024 10:15: 44 PM UT DOE STATON [id number] on September 17, 2024 4:25:00 AM UTC Discont inued 453117 7694 4084 309 pantoprazol e (PROTONIX) 40 MG TBEC 40.0 MG ORAL ONCE DAILY Start: September 16, 2024 10:15: 44 PM UTC End: September 16, 2024 10:15: 44 PM UT DOE STATON [id number] on September 17, 2024 4:25:00 AM UTC Discont inued 451448 4477 2077 090 losartan potassium (COZAAR) 25 MG TABS 50.0 MG ORAL ONCE DAILY Start: September 16, 2024 10:15: 44 PM UTC End: September 16, 2024 10:15: 44 PM UT DOE STATON [id number] on September 17, 2024 4:25:00 AM UTC Discont inued 310246 4842 5015 501 hydroCHLORO thiazide 12.5 MG TABS 12.5 MG ORAL ONCE DAILY Start: September 16, 2024 10:15: 44 PM UTC End: September 16, 2024 10:15: 44 PM UT DOE STATON [id number] on September 17, 2024 4:25:00 AM UTC Discont inued [id number] [id number] 0052 857 cetirizine (ZyrTEC) 10 MG TABS 10.0 MG ORAL ONCE DAILY Start: September 16, 2024 10:15: 44 PM UTC End: September 16, 2024 10:15: 44 PM UT DOESHANTEL STATON [id number] on September 17, 2024 4:25:00 AM UTC Discont inued 9963 6819 612 OSCAL W/ VITAMIN D3 500-5 MG-MCG TABS 1.0 TAB ORAL ONCE DAILY Start: September 16, 2024 10:15: 44 PM UTC End: September 16, 2024 10:15: 44 PM UTC DOE STATON [id number] on September 17, 2024 4:25:00 AM UTC Discont inued 1160638 2956 3028 420 vancomycin (VANCOCIN) 1000 MG SOLR 1000. 0 MG INTRAV ENOUS ONE TIME ONLY (SCHEDULED DOSE) Start: September 16, 2024 4:16:0 0 PM UTC End: September 16, 2024 4:16:0 0 PM UTC [facility] INTERFAC ED on September 16, 2024 4:16:00 PM UTC Discont inued [id number] 6332 3080 811 fentaNYL (SUBLIMAZE) 50 MCG/ML SOSY 50.0 MCG INTRAV ENOUS ONE TIME ONLY (SCHEDULED DOSE) Start: September 16, 2024 5:24:0 0 PM UTC End: September 16, 2024 5:24:0 0 PM [facility] on September 16, 2024 5:23:00 PM UTC Discont inued 6709167 6332 3080 811 fentaNYL (SUBLIMAZE) 50 MCG/ML SOSY 50.0 MCG INTRAV ENOUS ONE TIME ONLY (SCHEDULED DOSE) Start: September 16, 2024 5:40:0 0 PM UTC End: September 16, 2024 5:40:0 0 PM [facility] on September 16, 2024 5:39:00 PM UTC Discont inued 5692 6761 164 NOZIN NASAL OIL RIG DRILLER POPSWAB SWAB 1.0 EA NASAL TWICE A DAY Start: September 16, 2024 10:15: 44 PM UTC End: September 16, 2024 10:15: 44 PM UTC AGUILAR DUNG A [id number] on September 17, 2024 4:25:00 AM UTC Discont inued 9959 1063 546 sodium chloride 0.9% FLUSH 10 ML SOLN 10.0 ML INTRAV ENOUS NEEDED Start: September 16, 2024 6:14:0 0 PM UTC End: September 16, 2024 10:15: 44 PM UTC AGUILAR DUNG A [id number] on September 17, 2024 4:25:00 AM UTC Discont inued 4121437 3972 5613 000 ondansetron (ZOFRAN) INJ 4 MG/2 ML SOLN 4.0 MG INTRAV ENOUS EVERY SIX HOURS NEEDED Start: September 16, 2024 6:14:0 0 PM UTC End: September 16, 2024 10:15: 44 PM UTC AGUILAR DUNG A [id number] on September 17, 2024 4:25:00 AM UTC Discont inued 806746 3235 1092 825 promethazin e (PHENERGAN) 25 MG/ML SOLN 12.5 MG INTRAV ENOUS EVERY SIX HOURS NEEDED Start: September 16, 2024 6:14:0 0 PM UTC End: September 16, 2024 10:15: 44 PM UTC AGUILAR DUNG A [id number] on September 17, 2024 4:25:00 AM UTC Discont inued 0012 1176 230 MYLANTA DS ORAL LIQD 30.0 ML ORAL EVERY SIX HOURS NEEDED Start: September 16, 2024 6:14:0 0 PM UTC End: September 16, 2024 10:15: 44 PM UTC AGUILAR DUNG A [id number] on September 17, 2024 4:25:00 AM UTC Discont inued 209569 7468 4018 901 zolpidem tartrate (AMBIEN) 5 MG TABS 5.0 MG ORAL AT BEDTIME NEEDED Start: September 16, 2024 10:15: 44 PM UTC End: September 16, 2024 10:15: 44 PM UTC AGUILAR DUNG A [id number] on September 17, 2024 4:25:00 AM UTC Discont inued 8511989 3351 7077 198 MIRALAX PACKET 17 GM PACK 17.0 GM ORAL ONCE DAILY NEEDED Start: September 16, 2024 6:14:0 0 PM UTC End: September 16, 2024 10:15: 44 PM UTC AGUILAR DUNG A [id number] on September 17, 2024 4:25:00 AM UTC Discont inued 6374744 9110 9020 901 PROPOFOL 200 MG/20ML EMUL 200.0 MG INTRAV ENOUS ONE TIME ONLY (SCHEDULED DOSE) 8.333 MG/HR Start: September 16, 2024 6:55:0 0 PM UTC End: September 16, 2024 6:55:4 9 PM UTC MAXX HARRIS [id number] on September 16, 2024 6:56:00 PM UTC Discont inued 8661803 5789 9379 501 KETOROLAC TROMETHAMIN E 30 MG/M 30.0 MG ONE TIME ONLY (SCHEDULED DOSE) 1.25 MG/HR Start: September 16, 2024 6:55:0 0 PM UTC End: September 16, 2024 6:55:4 9 PM UTC MAXX HARRIS [id number] on September 16, 2024 6:56:00 PM UTC Discont inued 0236210 7463 5613 000 ONDANSETRON HCL 4 MG/2ML SOLN 4.0 MG INTRAV ENOUS ONE TIME ONLY (SCHEDULED DOSE) 0.167 MG/HR Start: September 16, 2024 6:55:0 0 PM UTC End: September 16, 2024 6:55:4 9 PM UTC MAXX HARRIS [id number] on September 16, 2024 6:56:00 PM UTC Discont inued [id number] 5570 8047 701 EPHEDRINE SULFATE (PRESSORS) 5 50.0 MG INTRAV ENOUS ONE TIME ONLY (SCHEDULED DOSE) 2.083 MG/HR Start: September 16, 2024 6:55:0 0 PM UTC End: September 16, 2024 6:55:4 9 PM UTC MAXX HARRIS [id number] on September 16, 2024 6:56:00 PM UTC Discont inued [id number] 5101 8793 202 LIDOCAINE HCL 2 % SOLN 2.0 ML ONE TIME ONLY (SCHEDULED DOSE) 0.083 ML/HR Start: September 16, 2024 6:55:0 0 PM UTC End: September 16, 2024 6:55:4 9 PM UTC MAXX HARRIS [id number] on September 16, 2024 6:56:00 PM UT SOCIAL HISTORY SOCIAL HISTORY SNOMED-CT Social History Element Description Effective Dates Offered Cessation Comment UpdatedBy [id number] Current Tobacco smoking status Never Smoked [id number] on September 03, 2024 4:18:31 PM UT SOCIAL HISTORY - Gender Sex: Female SOCIAL HISTORY - Status : status i nformation is not available Intention in Next Year: intention information is not available SOCIAL HISTORY - Sexual Behavior Sexual Orientation Gender Identity SNOMED-CT Description SNO MED -CT Description Activity Level No of Partners Partner Type UpdatedBy Information is not available VITAL SIGNS PATIENT VITAL SIGNS This section displays the mo st recent value for each vital sign as of November 02, 2024 2:18:22 AM UTC Loinc Code Vital Sign Activity Date Result Updated By 8302-2 Body height September 16, 2024 12:31:02 PM UTC 170.18 cm (67.0 in) [id number] on September 16, 2024 12:31:02 PM UTC 99384-8 Body mass index (BMI ) [Ratio] September 16, 2024 12:31:02 PM UTC 29.384 kg/m2 [id number] on September 16, 2024 12:31:02 PM UTC 3140-1 Body Surface Area Derived From Formula September 16, 2024 12:31:02 PM UTC 1.9679 m2 [id number] on September 16, 2024 12:31:02 PM UTC 8310-5 Body temperature September 16, 2024 6:00:00 PM UTC 98.0 [degF] [id number] on September 16, 2024 8:14:00 PM UTC 92589-1 Body weight Measured September 16 12:31:02 PM UTC 85.1 kg (188.0 lb) [id number] on September 16, 2024 12:31:02 PM UTC 8462-4 Diastolic blood pressure September 16, 2024 7:30:00 PM UTC 54.0 mm[Hg] [id number] on September 16, 2024 8:21:01 PM UTC 8867-4 Heart rate September 16, 2024 8:00:00 PM UTC 71 /min [id number] on September 16, 2024 8:30:53 PM UTC 3151-8 Inhaled oxygen flow rate September 16, 2024 8:00:00 PM UTC 2.0 L/min [id number] on September 16, 2024 8:30:53 PM UTC 8478-0 Mean blood pressure September 16 7:30:00 PM UTC 72.0 mm[Hg] [id number] on September 16, 2024 8:21:01 PM UTC 49195-8 Oxygen saturation in Arterial blood by Pulse oximetry September 16, 2024 8:00:00 PM UT 96.0 % [id number] on September 16, 2024 8:30:53 PM [facility] 9279-1 Respiratory rate September 16, 2024 8:00:00 PM UT 18 /min [id number] on September 16, 2024 8:30:53 PM [facility] 8480-6 Systolic blood pressure September 16, 2024 7:30:00 PM UT 96.0 mm[Hg] [id number] on September 16, 2024 8:21:01 PM [facility] 99048-5 Vital capacity [Volume] Respiratory system by Spirometry September 16, 2024 8:00:00 PM UT 1000.0 ml [id number] on September 16, 2024 8:30:53 PM [facility] PEDIATRIC GROWTH CHART - VITAL SIGNS This section displays Head C ircumference Percentile, Weight for Length Percentile and BMI Percentile [place] Code Pediatric Measure Age (Months) Result Updat ed By No Pediatric Growth Chart Pe rcentile Information Available. GOALS PATIENT GOALS Goal Assigned Date Updated By SAMANTA YOO REMAINS FREE FR OM COMPLICATIONS FOR MED-SURG ADMIT DURING THE CARE PERIOD September 16, 2024 [id number] on September 16, 2024 6:37:18 PM [facility] Problems Concern Status [facility] Concern problem infor mation not available. Smoking Status Status Years Used Consumed packs p er day [facility] Concern smoking histo ry information not available. Family History Concern Status Health Concern family histor y information not available. ENCOUNTERS ENCOUNTER INFORMATION Reason for Visit L TKA REVISION Admission September 16, 2024 6:14:00 PM UTC [address] [id number] Discharge September 16, 2024 10:49:00 PM [place] D ISCHARGED TO HOME OR SELF CARE ENCOUNTER DIAGNOSES Notes information is not tamera ilable. Code System Diagnosis Onset Date Diagnosis information is not available. ABSTRACT DIAGNOSES Code System Diagnosis Updated By M17.12 ICD10 UNILATERAL PRIMA RY OSTEOARTHRITIS, LEFT KNEE [id number] on September 29, 2024 2:41:46 PM UT M17.12 ICD10 UNILATERAL PRIMA RY OSTEOARTHRITIS, LEFT KNEE [id number] on September 29, 2024 2:41:46 PM UT I25.10 ICD10 ATHEROSCLEROTIC HEART DISEASE OF [place] CORONARY ARTERY WITHOUT ANGINA PECTORIS [id number] on September 29, 2024 2:41:46 PM UT I10 ICD10 ESSENTIAL (PRIMARY) HYPERTEN CONNER [id number] on September 29, 2024 2:41:46 PM UT E78.5 ICD10 HYPERLIPIDEMIA, UNSPECIFIED [id number] on September 29, 2024 2:41:46 PM UT F41.9 ICD10 ANXIETY DISORDER, UNSPECIFIE D [id number] on September 29, 2024 2:41:46 PM UT D64.9 ICD10 ANEMIA, UNSPECIFIED [id number] on September 29, 2024 2:41:46 PM UT D72.819 ICD10 DECREASED WHITE BLOOD CELL COUNT, UNSPECIFIED [id number] on September 29, 2024 2:41:46 PM UT E03.9 ICD10 HYPOTHYROIDISM, UNSPECIFIED [id number] on September 29, 2024 2:41:46 PM UT Z79.899 ICD10 OTHER PRISON (CURRENT) DR UG THERAPY [id number] on September 29, 2024 2:41:46 PM [facility] CARE TEAM Care Auto Mechanic Supervisor Role STEVEN LILLY Primary Attending MAYURI PEARCE Primary Care NASIR FAYE Consulting DAI EPSTEIN Surgeon NASIR FAYE Surgeon STEVEN LILLY Admitting NASIR FAYE Referring HOSPITAL DISCHARGE INSTRUCTION DISCHARGE INSTRUCTION Encounter [id number] Admit Date September 16, 2024 6:14: 00 PM UT Discharge Date September 16, 2024 10:49 :00 PM [facility] PATIENT EDUCATION SUMMARY Patient/Visit Information: Patient Name: SAMANTA YOO Diag: Attending Caregiver: MAXX HARRIS Discharge Instruction Sheets Provided: BEFAST-Stroke Warning Signs COVID-19 CDC-EN Discharge Information Fall Prevention in Hospitals and in the Home [facility] Pain and Responsible Opioid (Pain Medication) Management KYNECT- HELP Medication Side Effects Suicide - Managing your Feelings Total Knee Replacement Patient Instructions: Followup Appointments/Instructions: HISTORY AND PHYSICAL NOTE HISTORY AND PHYSICAL NOTE Note Title Admission History an d Physical Date Of Service September 16, 2024 6:17: 58 PM UT Created By [id number] on September 16, 2024 6:17:58 PM [facility] Signed By [id number] on September 20, 2024 7:00:38 PM [facility] Infectious Disease Screen Has the patient or someone in their household tested positive for COVID-19 in the past 14 days or are currently awaiting lab results for COVID-19? (no), Does the patient have a fever, cough, or new rash in the past week? (no), Has the patient traveled outside of the [place] in the last 30 days or had contact with someone that has traveled outside the [place] and is sick in the past 30 days? (no) Chief Complaint left knee pain History of Present Illness Samanta Yoo is a 74 year-old female admitted to the medicine service for observation following an elective left total knee revision with Dr Faye. Mrs Yoo has a past medical history of HTN, HLD and OA, all of which are well controlled and closely monitored by her PCP. She attempted conservative management of refractory knee pain after TKA and was unable to maintain a level of activity that allowed for quality of life. She underwent elective TKA revision today without complications. She is admitted for observation, pain control and PT. Past Medical History Anemia Nodule of lung Hypothyroidism Gastroesophageal reflux disease H/O: hypertension Past Surgical History Lumbar spinal fusion in 2023 section Arthroplasty of knee, femoral condyles with debridement and partial synovectomy Open reduction of fracture with internal fixation, left arm Repair of diaphragmatic hernia by abdominal approach Social History tobacco use Never Smoked alcohol use No Known Use drug use No Known Use marital status Allergies GLUTEN - unknown Vital Signs 0833 T 98.3 HR 90 RR 18 BP 140 / 70 O2Sat 96 0748 T 98.3 HR 68 RR 14 BP 180 / 99 O2Sat 96 Physical Exam Narrative General: alert and oriented, no acute distress Neuro: awake, alert, no apparent focal deficits Eye: normal conjunctiva HENT: normocephalic, atraumatic Neck: no JVD Lungs: symmetrical chest rise, non-labored breathing Heart: normal rate, normal rhythm Abdomen: nondistended MSK: deferred Skin: warm, dry, no rashes or lesions Psych: cooperative, normal mood and affect Lab Results 0820 Blood Bank HISTCHK Completed ABO/RH A Positive ABS Negative STATUS Completed Procedures and Surgeries None Problem List Arthritis of left knee Hyperlipidemia Essential hypertension Total knee replacement Assessment/Plan 1. Left Knee Revision--POA - previous TKA failed despite conservative measures - uncomplicated revision 09/[address] Faye - monitor for post-op bleeding and infection - pain control per Ortho orders - PT/OT 2. HTN--POA - well controlled on home dose of medications - continue home meds when tolerating PO intake - CMP in AM - 2g sodium diet without fluid restriction 3. HLD--POA - resume home dose of atorvastatin - FLP with AM labs - low cholesterol/ low sodium diet Feeding: Oral/ Low Cholesterol/ Low Sodium Vital signs per protocol Monitor & trend: electrolytes, infection markers, liver function Thromboembolic ppx: Ambulate/ SCD's Ulcer ppx: Protonix Glycemic control: Controlled Bowel regimen: Miralax Code Status: Full Code HC Surrogate: - I confirmed that the patient's Advance Care Plan is present, code status has been documented or surrogate decision maker is listed in the patient's medical record. Records/ Med Rec review: I have utilized all available immediate resources to obtain, update or review the patient's current medications (including OTC products, herbals, cannabis/cannabidiol products as well as vitamin/ mineral/ dietary supplements. Barriers to Discharge: ability to ambulate without assistance, pain control with PO meds, PT/ OT assessment Expected (tentative) Discharge: 24 hours Expected Disposition at Discharge: (home, SNF/Rehab, etc): home with HH vs rehab Active Medications MIRALAX PACKET 17 GM PO DAILYPRN for CONSTIPATION MYLANTA DS ORAL 30 ML PO Q6HPRN for HEARTBURN INDIGESTION NOZIN NASAL OIL RIG DRILLER POPSWAB 1 EA NASAL BID APPLY TO EACH NOSTRIL ondansetron (ZOFRAN) INJ 4 MG/2 ML 4 MG IV PUSH Q6HPRN for NAUSEA VOMITING promethazine (PHENERGAN) 25 MG/ML 12.5 MG IV PUSH Q6HPRN for NAUSEA VOMITING IF REFRACTORY TO ZOFRAN sodium chloride 0.9% FLUSH 10 ML IV PUSH PRN for FLUSH IV LINE zolpidem tartrate (AMBIEN) 5 MG PO BEDTIMEPRN for SLEEP tranexamic acid (CYKLOKAPRON) 1000 MG IV ONE 300 ML/HR NOISE TESTER TO SURGERY. TO BE GIVEN PRE-OP *DO NOT GIVE IF HISTORY OF DVT, KIDNEY DISEASE, HEART DISEASE OR CVA* INFUSE OVER 10 MINUTES droperidol (INAPSINE) 2.5 MG/ML 0.625 MG IV PUSH PACUPRN for NAUSEA VOMITING (2ND CHOICE) GIVE IF ZOFRAN INEFFECTIVE. ADMINISTER 2ND DOSE 30 MINUTES AFTER FIRST. fentaNYL (SUBLIMAZE) 50 MGC/ML 50 MCG IV PUSH [id number] for SEVERE PAIN 7-10 PAIN SCALE NOT TO EXCEED 200MCG fentaNYL (SUBLIMAZE) 50 MGC/ML 25 MCG IV PUSH [id number] for MODERATE PAIN 4-6 PAIN SCALE NOT TO EXCEED 200MCG HYDROmorphone (DILAUDID) 1 MG/ML 1 MG IV PUSH [id number] for SEVERE PAIN 7-10 PAIN SCALE 2ND CHOICE IF FENTANYL INEFFECTIVE. NOT TO EXCEED 2MG. HYDROmorphone (DILAUDID) 0.5 MG/0.5ML 0.5 MG IV PUSH [id number] for MODERATE PAIN 4-6 PAIN SCALE 2ND CHOICE IF FENTANYL INEFFECTIVE. NOT TO EXCEED 2MG. LACTATED RINGERS 1000 ML IV PACUONE 25 ML/HR meperidine (DEMEROL) 25 MG/ML 25 MG IV PUSH PACUPRN for POST PROCEDURE SHIVERING x1 DOSE FOR SHIVERING IF NEEDED. meperidine (DEMEROL) 25 MG/ML 12.5 MG IV PUSH PACUPRN for POST PROCEDURE SHIVERING GIVE X1 DOSE FOR SHIVERING IF NEEDED midazolam (VERSED) 2 MG/2 ML 2 MG IV PUSH PACUPRN for ANXIETY X1 DOSE IF NEEDED FOR ANXIETY midazolam (VERSED) 2 MG/2 ML 1 MG IV PUSH [id number] for ANXIETY MAY REPEAT X1 DOSE IF NEEDED. ondansetron (ZOFRAN) INJ 4 MG/2 ML 4 MG IV PUSH PACUPRN for NAUSEA VOMITING (USE FIRST) ADMINISTER 2ND DOSE 30 MINUTES AFTER 1ST DOSE IF NEEDED. PERCOCET 5-325 MG 2 TAB PO ONE-UNSCHD X1 DOSE PRIOR TO DISCHARGE PERCOCET 5-325 MG 1 TAB PO ONE-UNSCHD X1 DOSE PRIOR TO DISCHARGE promethazine (PHENERGAN) 12.5 MG TOPICAL PACUPRN for NAUSEA VOMITING (3RD CHOICE) IF ZOFRAN AND DROPERIDOL INEFFECTIVE promethazine (PHENERGAN) 25 MG/ML 12.5 MG IV PUSH PACUPRN for NAUSEA VOMITING (3RD CHOICE) IF ZOFRAN AND DROPERIDOL INEFFECTIVE. acetaminophen (TYLENOL) 650 MG RECTAL Q4HPRN for MILD PAIN 1-3 PAIN SCALE PRN HEADACHE OR TEMP >101 acetaminophen (TYLENOL) 1000 MG PO Q6HPRN for MILD PAIN 1-3 PAIN SCALE PRN HEADACHE OR TEMP >101 ASPIRIN LOW DOSE 81 MG PO BID atorvastatin (LIPITOR) 40 MG PO DAILY therapeutic substitution for rosuvastatin 20mg daily BISACODYL 10 MG RECTAL DAILYPRN for CONSTIPATION ceFAZolin (ANCEF) 2 GM IV Q6H 100 ML/HR X3 MORE DOSES COMPLETE WITHIN 24 HOURS OF INCISION cetirizine (ZyrTEC) 10 MG PO DAILY formulary substitution for levocetirizi ne 5mg daily cyclobenzaprine (FLEXERIL) 10 MG PO Q8HPRN for MUSCLE SPASM PAIN docusate sodium (COLACE) 100 MG PO DAILY docusate sodium (COLACE) 100 MG PO [id number] for CONSTIPATION famotidine (PEPCID) 20 MG PO BID hydroCHLOROthiazide 12.5 MG PO DAILY formulary substitution for olmesartan/hctz 20/12.5mg levothyroxine (SYNTHROID) 125 MCG PO DAILY LORazepam (ATIVAN) 2 MG PO BEDTIME losartan potassium (COZAAR) 50 MG PO DAILY formulary substitution for olmesartan/h ctz 20/12.5mg magnesium oxide (MAG-OX) 800 MG PO DAILY melatonin 10 MG PO BEDTIME MILK OF MAGNESIA 7.75 % 400 MG/5 ML 15 ML PO DAILYPRN for CONSTIPATION montelukast sodium (SINGULAIR) 10 MG PO DAILY multiple vitamin (ONE-A-DAY) 1 TAB PO DAILY NOZIN NASAL OIL RIG DRILLER POPSWAB 1 EA NASAL BID APPLY TO EACH NOSTRIL ondansetron (ZOFRAN) INJ 4 MG/2 ML 4 MG IV PUSH Q8HPRN for NAUSEA VOMITING OSCAL W/ VITAMIN D3 500-5 MG-MCG 1 TAB PO DAILY oxyCODONE (ROXICODONE) 5 MG PO Q6HPRN for SEVERE PAIN 7-10 PAIN SCALE pantoprazole (PROTONIX) 40 MG PO DAILY therapeutic substitution for omeprazole 40mg daily sodium chloride 0.45% 1000 ML IV Continuous 75 ML/HR sodium chloride 0.9% FLUSH 10 ML IV PUSH PRN for FLUSH IV LINE zolpidem tartrate (AMBIEN) 5 MG PO BEDTIMEPRN for SLEEP Time spent with Patient Total [id number] time spent with patient/ family discussing diagnosis, testing, treatment plan and exam: 25 minutes Electronically signed by JEFF MORILLO on 0091 I hereby attest the note that was written on this patient accurately reflects the notations made when patient was examined. 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 Role on Team Status Start Date End Date Update d By DARIEL TAM Surgeon normal September 16, 2024 11:00:00 AM UTC September 16, 2024 10:49:00 PM UTC [id number] on September 29, 2024 2:42:46 PM UTC LUCIAN Mcadams CRNA Surgeon normal September 16, 2024 1:49:00 PM UTC September 16, 2024 10:49:00 PM UTC [id number] on September 29, 2024 2:42:46 PM UTC MAXX TAM Attending normal September 16 3:36:58 PM UTC September 16, 2024 6:18:13 PM UTC [id number] on September 29, 2024 2:42:46 PM UTC MAXX TAM Admitting normal September 16 3:36:58 PM UTC September 16, 2024 6:18:13 PM UTC [id number] on September 29, 2024 2:42:46 PM UT DARIEL TAM Consulting normal September 16, 2024 3:36:11 PM UTC September 16, 2024 10:49:00 PM UTC [id number] on September 29, 2024 2:42:46 PM UTC PORTIA Curiel PCP normal September 03, 2024 3:15:00 PM UTC September 16, 2024 10:49:00 PM UTC [id number] on September 29, 2024 2:42:46 PM UTC NO DEFINED PRIMARY C PCP normal August [id number] 3:45:00 PM UTC September 03, 2024 3:15:00 PM UTC [id number] on September 29, 2024 2:42:46 PM UTC DARIEL TAM Referring normal August 12, 2024 3:45:00 PM UTC September 16, 2024 6:18:13 PM UTC [id number] on September 29, 2024 2:42:46 PM UTC DARIEL TAM Attending normal August 12, 2024 3:45:00 PM UT September 16, 2024 3:36:58 PM [facility] [id number] on September 29, 2024 2:42:46 PM [facility] DARIEL TAM Admitting normal August 12, 2024 3:44:59 PM [facility] September 16, 2024 3:36:58 PM [facility] [id number] on September 29, 2024 2:42:46 PM [facility]
--- OUTSIDE RECORDS SUMMARY | 2024-11-04 11:09 | XMS_ITS | Data Portability ---
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 Plan of Treatment Reminders Order Date Submit Date Provider Last Modified By Organization Details Last Modified Time Details Appointments None recorded. Lab creatinine , serum or plasma 2022 023 [facility], [address] [place], [address], 3 15:56:44 bun (blood urea nitrogen), serum or plasma 2022 023 [facility], [address] [place], [address], 3 15:56:44 Referral None recorded. Procedures None recorded. Surgeries None recorded. Imaging CT, abdomen + pelvis, w/ contrast 2022 023 [email or web address] [facility] (Imaging), [address] [place], [address], 3 10:58:16 Medication Orders Bactrim DS 800 mg-160 mg tablet 2022 023 [facility], [address] [facility], [place], [address], 10:26:31 Xifaxan 550 mg tablet 2022 023 [email or web address] 3 [facility], [address] [facility], [place], [address], 09:01:47 Patient TargetsNo targets recorded. Patient InstructionsNo instructions recorded. Reason for Referral None Reported. Results Created Date Observation Date Name Description Value Unit Range Abnormal Flag Note LastModifiedBy Organization Detail LastModifiedTime 06/30/19 23 06/30/2022 BLOOD UREA NITRO GEN blood urea nitrogen 16 mg/dL 9-23 normal Not Available [address], [address], 06/30/2022 13:52:56 06/30/19 23 06/30/2022 BLOOD UREA NITRO GEN performing lab see note ML - [facility] [address] [facility] [place] [address] Not Available [address], [address], 06/30/2022 13:52:56 06/30/19 23 06/30/2022 CREAT ININE creatinine 0.83 mg/dL 0.50-0 .80 high Possi ble Creat inine Assay Inter feren ce due to Aceta minop hen: N-ralph tyl-p -gisselle oquin one-i mine (NAPQ I) is a metab olite of aceta minop hen. NAPQI sarah ntrat ions of appro ximat saira 8 mg/dL corre latin g to toxic level s of aceta minop hen demon strat es a Not Available [address], [address], 06/30/2022 13:52:56 06/30/19 23 06/30/2022 CREAT ININE eGFR CKD-epi (2020) 74 >59mL/ min/1. 73msq eGFR was calcu lated using the CKD-E PI 2020 equat ion. The 2020 CKD-E PI equat ion is now the recom alvina d stand diane. This versi on does not inclu de race, as do the 2008 and 2011 CKD-E PI creat inine and creat inine -cyst atin C equat ions. For the same creat inine value , the 2020 equat ion will estim ate a lower GFR for Black patie nts and a highe r GFR for non-B lack patie nts as ruel red to previ ous calcu latio ns. This calcu lated GFR is advoc ated by the [facility] at[facility] to be used as an indic ator of Chron ic Kidne y Disea se (CKD) . 5 Stage s of Chron ic Kidne y Disea se ----- ----- ----- ----- ----- ----- ----- ----- ----- ----- ----- ---- Stage 1 90 mL/mi n or more Healt hy kidneal ys or Kidne y damag e with elin l or high GFR ----- ----- ----- ----- ----- ----- ----- ----- ----- ----- ----- ---- Stage 2 60 - 89 mL/mi n Kidne y damag e and mild decre ase in GFR ----- ----- ----- ----- ----- ----- ----- ----- ----- ----- ----- ---- Stage 3 30 - 59 mL/mi n Moder ate decre ase in GFR ----- ----- ----- ----- ----- ----- ----- ----- ----- ----- ----- ---- Stage 4 15 - 29 mL/mi n Sever e decre ase in GFR ----- ----- ----- ----- ----- ----- ----- ----- ----- ----- ----- ---- Stage 5 Less than 15 mL/mi n On phoebe sis or Mira breenu re ----- ----- ----- ----- ----- ----- ----- ----- ----- ----- ----- ---- Patie nt's clini bob statu s must be consi dered for the care of your patie nt. Not Available [address], [address], 06/30/2022 13:52:56 06/30/1906/30/2022 GIANNA JOYCE performing lab see note ML - [facility] [address] [place] [address] [place] [address] Not Available [address], [address], 06/30/2022 13:52:56 08/08/19 23 08/07/2022 SURGI BOB surgical ----- ----- ----- ----- ----- ----- ----- ----- ----- ----- ----- ----- ----- ----- ----- ----- ----- ----- -- RUN DATE: 08/07 [facility] *[facility] * PAGE 1 RUN TIME: 1114 Miki dalton RUN USER: INTER FACE ----- ----- ----- ----- ----- ----- ----- ----- ----- ----- ----- ----- ----- ----- ----- ----- ----- ----- -- PATIE NT: MING MOSER [facility] #: [id number] LOC: HAYDEE U #: [id number] AGE/S X: 71/F ROOM: RE08/[address]: Jaspreet LUNA, sylvester : [birth year]09 BED: DIS: [place] S: [place] [facility] [place]: ----- ----- ----- ----- ----- ----- ----- ----- ----- ----- ----- ----- ----- ----- ----- ----- ----- ----- -- SPEC #: [id number] :[id number] RECD: 08/03- 107 STATU S: SOUT REQ #: [id number] KALLI: 08/02- SUBM DR: Jaspreet LUNA, sylvester ENTER ED: 08/03 107 SP TYPE: SURG OTHR DR: Yoselin on VENDETTE, Andrea a P. ORDER ED: 69568 /3 COPIE S TO: Jaspreet LUNA, sylvester [address] [place] [address] gareth chris [email or web address] on VENDETTE, Andrea hector P. [address] [place] [address] [email or web address] HENDRIX DUR : [id number] (1106) TISSU ES: 1. BOWEL , NOS - SMALL BOWEL BIOPS Y 2. ESOPH PRIMITIVO, NOS - DISTA L ESOPH PRIMITIVO R/O BARRE TT'S 3. COLON , NOS - RANDO M COLON BIOPS IES CLINI BOB PRE OP DIAGN OSIS diarr hea, CT of abd abnor mal SOURC E OF SPECI MEN 1. small bowel bx 3. rando m colon bxs 2. dista l esoph primitivo, r/o [place] tt's DESCR IPTIO N The first speci men is submi tted in a conta iner of forma sarina label ed small bowel biops y. It consi sts of tanni sh tissu e measu ring 4 x 3mm. The speci men is submi tted in its entir ety in casse tte 1. The secon d speci men is submi tted in a conta iner of forma sarina label ed dista l esoph primitivo. It consi sts of one fragm ent of tanni sh tissu e measu ring 3 x 2.5mm . The speci men is submi tted in its entir ety in casse tte 2. The third speci men is submi tted in a conta iner of forma sarina label ed rando m colon biops ies. It consi sts of tanni sh tissu e measu ring 2 x 1mm. The speci men is submi tted in its entir ety in casse tte 3. Micro scopi c exami natio n perfo rmed. DARCIE DWIGHT ON NEXT PAGE ----- ----- ----- ----- ----- ----- ----- ----- ----- ----- ----- ----- ----- ----- ----- ----- ----- ----- -- RUN DATE: 08/07 [facility] *LIVE * PAGE 2 RUN TIME: 1114 Speci olinda Cesari krystle RUN USER: INTER FACE ----- ----- ----- ----- ----- ----- ----- ----- ----- ----- ----- ----- ----- ----- ----- ----- ----- ----- -- SPEC #: [id number] :[id number] ERASMO NT: MING MOSER #[id number] (Cont inued ) ----- ----- ----- ----- ----- ----- ----- ----- ----- ----- ----- ----- ----- ----- ----- ----- ----- ----- -- PATHO LOGIC DIAGN OSIS 1. ESSEN TIALL Y UNREM ARKAB LE SMALL BOWEL , SPECI MEN SUBMI TTED BIOPS Y OF SMALL BOWEL . 2. SQUAM OUS MUCOS A AND GLAND ULAR TISSU E INCLU DING SMALL FOCUS OF SPECI TRI D GLAND ULAR EPITH ELIUM CONSI STENT WITH ORIGI N IN BARRE TT'S ESOPH PRIMITIVO WITH CHRON IC INFLA MMATO RY VAZ ES, NO GLAND ULAR DYSPL IDRIS IDENT IFIED , SPECI MEN SUBMI TTED BIOPS Y OF DISTA L ESOPH PRIMITIVO. 3. MELAN OSIS COLI, SPECI MEN SUBMI TTED BIOPS Y OF COLON . ----- ----- ----- ----- ----- ----- ----- ----- ----- ----- ----- ----- ----- ----- ----- ----- ----- ----- -- Maki donald on File Any VIVAR 08/07 1113 ----- ----- ----- ----- ----- ----- ----- ----- ----- ----- ----- ----- ----- ----- ----- ----- ----- ----- -- END OF REPOR T Not Available [address], [address], 08/07/2022 11:15:44 09/21/19 23 09/20/2022 STOOL WBC stool WBC SEE BELOW STOOL WBC(F ) Kalli Date/ Time: 09/20 08:20 Luna Date/ Time: 09/20 11:46 SOURC E: STOOL SPEC DESC: STOOL LACTO CALLI N QUAL NEGAT CLINT Not Available [address], [address], 09/20/2022 11:47:53 09/21/19 23 09/20/2022 STOOL WBC performing lab SEE NOTE ML - [facility] [address] [facility] [facility] [place] [address] Not Available [address], [address], 09/20/2022 11:47:53 09/21/19 23 09/20/2022 CAMPY LOBAC TER ANTIG EN campylobacte r antigen See Below CAMPY LOBAC TER ANTIG EN(F) Kalli Date/ Time: 09/20 08:20 Luna Date/ Time: 09/20 11:46 SOURC E: STOOL SPEC DESC: CAMPY LOBAC TER ANTIG EN NO CAMPY LOBAC TER ANTIG EN DETEC ROMULO Not Available [address], [address], 09/20/2022 11:49:05 09/21/19 23 09/20/2022 CAMPY LOBAC TER ANTIG EN performing lab see note ML - [facility] [address] [facility] [place] [address] Not Available [address], [address], 09/20/2022 11:49:05 09/21/19 23 09/20/2022 C. DIFF SPECI MEN ACCEP TABLE : C. diff specimen acceptable: See Below C. DIFF SPECI MEN ACCEP TABLE :(F) Kalli Date/ Time: 09/20 08:20 Luna Date/ Time: 09/20 12:06 SOURC E: STOOL SPEC DESC: C.DIF F SPEC ACCEP TABLE : YES; LIQUI D STOOL RECEI KAIDEN AND ACCEP TABLE FOR TESTI NG. Not Available [address], [address], 09/20/2022 12:08:50 09/21/19 23 09/20/2022 C. DIFF SPECI MEN ACCEP TABLE : performing lab see note ML - [facility] [address] [facility] [facility] [place] [address] Not Available [address], [address], 09/20/2022 12:08:50 09/21/19 23 09/20/2022 CLOST RIDIU M DIFFI CILE AG clostridium difficile Ag See Below CLOST RIDIU M DIFFI CILE AG(F) Kalli Date/ Time: 09/20 08:20 Luna Date/ Time: 09/20 12:06 SOURC E: STOOL SPEC DESC: C.DIF FICIL E ANTIG EN GDH NEGAT CLINT Not Available [address], [address], 09/20/2022 12:08:50 09/21/19 23 09/20/2022 CLOST RIDIU M DIFFI CILE AG performing lab see note ML - [facility] [address] [facility] [facility] [place] [address] Not Available [address], [address], 09/20/2022 12:08:50 09/21/19 23 09/20/2022 CLOST RIDIU M DIFFI CILE TOXIN clostridium difficile toxin SEE BELOW CLOST RIDIU M DIFFI CILE TOXIN (F) Kalli Date/ Time: 09/20 08:20 Luna Date/ Time: 09/20 12:06 SOURC E: STOOL SPEC DESC: C.DIF FICIL E TOXIN NEGAT CLINT Not Available [address], [address], 09/20/2022 12:08:50 09/21/19 23 09/20/2022 CLOST RIDIU M DIFFI CILE TOXIN performing lab SEE NOTE ML - [facility] [address] [facility] [address] [facility] [place] [address] Not Available [address], [address], 09/20/2022 12:08:50 09/21/19 23 09/20/2022 CDIFF TOX/E PI BY PCR cdiff cepheid info Resul t: NEGAT CLINT REFER ENCE INTER SERENA= NEGAT CLINT Toxig enic C diffi cile: NEGAT CLINT Epide abhi Strai n B1/NA P1/02 7: PRESU MTIVE NEGAT CLINT LOT NUMBE R:100 [id number] EXPIR ATION DATE: Not Available [address], [address], 09/20/2022 13:28:55 09/21/19 23 09/20/2022 CDIFF TOX/E PI BY PCR cdiff toxin B PCR cepheid cgx NEGATI VE negati ve Not Available [address], [address], 09/20/2022 13:28:55 09/21/19 23 09/20/2022 CDIFF TOX/E PI BY PCR cdiff 027 PCR cepheid cgx PRESUM PTIVE NEGATI VE presum p neg Not Available [address], [address], 09/20/2022 13:28:55 09/21/19 23 09/20/2022 CDIFF TOX/E PI BY PCR performing lab see note ML - [facility] [address] [facility] [facility] [place] [address] Not Available [address], [address], 09/20/2022 13:28:55 09/21/19 23 09/20/2022 CAMPY LOBAC TER ANTIG EN campylobacte r antigen See Below CAMPY LOBAC TER ANTIG EN(F) Kalli Date/ Time: 09/20 08:20 Luna Date/ Time: 09/21 11:53 SOURC E: STOOL SPEC DESC: CAMPY LOBAC TER ANTIG EN NO CAMPY LOBAC TER ANTIG EN DETEC ROMULO Not Available [address], [address], 09/21/2022 11:54:02 09/21/19 23 09/20/2022 CAMPY LOBAC TER ANTIG EN performing lab see note - [facility] [address] [place] [address] [place] [address] Not Available [address], [address], 09/21/2022 11:54:02 09/21/19 23 09/20/2022 SHIGA TOXIN 1 2 shigatoxin 1 2 See Below SHIGA TOXIN 1 2(F) Kalli Date/ Time: 09/20 08:20 Luna Date/ Time: 09/21 11:53 SOURC E: STOOL SPEC DESC: SHIGA TOXIN 1&2 NEGAT CLINT FOR SHIGA TOXIN 1 NEGAT CLINT FOR SHIGA TOXIN 2 Not Available [address], [address], 09/21/2022 11:54:03 09/21/19 23 09/20/2022 SHIGA TOXIN 1 2 performing lab see note ML - [facility] [address] [facility] [place] [address] Not Available [address], [address], 09/21/2022 11:54:03 09/21/19 23 09/20/2022 STOOL CULTU RE stool culture See Below STOOL CULTU RE(P) Kalli Date/ Time: 09/20 08:20 Luna Date/ Time: 09/21 11:53 SOURC E: STOOL SPEC DESC: DATE 09/21 TIME 1153 TECH YLAB. [id number] . PRELI MINAR Y REPOR T:NOR MAL STOOL GABINO AT 24 HOURS ...HO LD CULTU RE FOR 24 MORE HOURS .... Not Available [address], [address], 09/21/2022 11:54:03 09/21/19 23 09/20/2022 STOOL CULTU RE performing lab see note ML - [facility] [address] [facility] [place] [address] Not Available [address], [address], 09/21/2022 11:54:03 09/21/19 23 09/20/2022 CAMPY LOBAC TER ANTIG EN campylobacte r antigen See Below CAMPY LOBAC TER ANTIG EN(F) Kalli Date/ Time: 09/20 08:20 Luna Date/ Time: 09/22 08:41 SOURC E: STOOL SPEC DESC: CAMPY LOBAC TER ANTIG EN NO CAMPY LOBAC TER ANTIG EN DETEC ROMULO Not Available [address], [address], 09/22/2022 08:42:52 09/21/19 23 09/20/2022 CAMPY LOBAC TER ANTIG EN performing lab see note ML - [facility] [address] [facility] [place] [address] Not Available [address], [address], 09/22/2022 08:42:52 09/21/19 23 09/20/2022 SHIGA TOXIN 1 2 shigatoxin 1 2 See Below SHIGA TOXIN 1 2(F) Kalli Date/ Time: 09/20 08:20 Luna Date/ Time: 09/22 08:41 SOURC E: STOOL SPEC DESC: SHIGA TOXIN 1&2 NEGAT CLINT FOR SHIGA TOXIN 1 NEGAT CLINT FOR SHIGA TOXIN 2 Not Available [address], [address], 09/22/2022 08:42:53 09/21/19 23 09/20/2022 SHIGA TOXIN 1 2 performing lab see note - [facility] [address] [facility] [place] [address] Not Available [address], [address], 09/22/2022 08:42:53 09/21/19 23 09/20/2022 STOOL CULTU RE stool culture See Below STOOL CULTU RE(F) Kalli Date/ Time: 09/20 08:20 Luna Date/ Time: 09/22 08:41 SOURC E: STOOL SPEC DESC: DATE 09/21 TIME 1153 TECH YLAB. [id number] . PRELI MINAR Y REPOR T:NOR MAL STOOL GABINO AT 24 HOURS ...HO LD CULTU RE FOR 24 MORE HOURS .... ECOLI 0157 NO ECOLI 0157 ISOLA ROMULO SALMO SANDRA NO SALMO SANDRA SPECI ES ISOLA ROMULO SHIGE LLA NO SHIGE LLA SPECI ES ISOLA ROMULO. Not Available [address], [address], 09/22/2022 08:42:53 09/21/19 23 09/20/2022 STOOL CULTU RE performing lab see note ML - [facility] [address] [facility] [place] [address] Not Available [address], [address], 09/22/2022 08:42:53 09/21/19 23 09/20/2022 FATUMA C DISEA SE ANTIB FRANCHESCA PANEL Ab endomysial IgA Negati ve negati ve Not Available [address], [address], 09/22/2022 16:14:29 09/21/19 23 09/20/2022 FATUMA C DISEA SE ANTIB FRANCHESCA PANEL Ab anti gliadin IgA 5 units 0-19 Negat clint 0 - 19 Weak Posit clint 20 - 30 Moder ate to Stron g Posit clint >30 Not Available [address], [address], 09/22/2022 16:14:29 09/21/19 23 09/20/2022 FATUMA C DISEA SE ANTIB FRANCHESCA PANEL Ab anti gliadin IgG 2 units 0-19 Negat clint 0 - 19 Weak Posit clint 20 - 30 Moder ate to Stron g Posit clint >30 Not Available [address], [address], 09/22/2022 16:14:29 09/21/19 23 09/20/2022 FATUMA C DISEA SE ANTIB FRANCHESCA PANEL Ab tissue transglutami nase IgA <2 U/mL 0-3 Negat clint 0 - 3 Weak Posit clint 4 - 10 Posit clint >10 Tissu e Trans gluta isela e (tTG) has been ident ified as the endom ysial antig en. Studi es have demon str- ated that endom ysial IgA antib odies have over 99% speci ficit y for glute n sensi tive enter opath y. Not Available [address], [address], 09/22/2022 16:14:29 09/21/19 23 09/20/2022 FATUMA C DISEA SE ANTIB FRANCHESCA PANEL Ab tissue transglutami nase IgG <2 U/mL 0-5 Negat clint 0 - 5 Weak Posit clint 6 - 9 Posit clint >9 Not Available [address], [address], 09/22/2022 16:14:29 09/21/19 23 09/20/2022 FATUMA C DISEA SE ANTIB FRANCHESCA PANEL immunoglobul in A <5 mg/dL 64-422 abnormal Resul t confi rmed on sarah ntrat ion. Perfo rmed At: [facility] [address] [place] [address] 1269 Marlon beth PhD Ph:[phone] Not Available [address], [address], 09/22/2022 16:14:29 09/21/19 23 09/20/2022 FATUMA C DISEA SE ANTIB FRANCHESCA PANEL performing lab see note [facility] [address] [facility] [address] Not Available [address], [address], 09/22/2022 16:14:29 09/21/19 23 09/20/2022 STOOL FAT QUALI TATIV E stool neutral fats INCREA SED () Elin l (<60 Dropl ets/H PF) Not Available [address], [address], 09/23/2022 03:08:56 09/21/19 23 09/20/2022 STOOL FAT QUALI TATIV E stool total fats INCREA SED () Elin l (<100 Dropl ets/H PF) Perfo rmed At: [facility] [address] [place] [address] 1269 Marlon beth PhD Ph:[phone] Not Available [address], [address], 09/23/2022 03:08:56 09/21/19 23 09/20/2022 STOOL FAT QUALI TATIV E performing lab SEE NOTE [facility] [address] [facility] [address] Not Available [address], [address], 09/23/2022 03:08:56 09/21/19 23 09/20/2022 FECES OVA AND ASHISH ITES feces ova and parasites SEE BELOW FECES OVA AND ASHISH ITES( F) Kalli Date/ Time: 09/20 08:20 Luna Date/ Time: 09/28 07:02 SOURC E: STOOL SPEC DESC: FECES OVA AND ASHISH ITES NO OVA,C YSTS, OR ASHISH ITES SEEN ON WET PREP Not Available [address], [address], 09/28/2022 07:03:29 09/21/19 23 09/20/2022 FECES OVA AND ASHISH ITES performing lab SEE NOTE [facility] - [facility] [address] [facility] [address] Not Available [address], [address], 09/28/2022 07:03:29 09/21/19 23 09/20/2022 TRICH TERRELL STAIN trichrome stain See Below TRICH TERRELL STAIN (F) Kalli Date/ Time: 09/20 08:20 Luna Date/ Time: 09/28 07:02 SOURC E: STOOL SPEC DESC: This test does not inclu de testi ng for Crypt ospor idium parvu m, Cyclo spora , or Micro spori vlad. One negat clint speci men does not rule out the possi bilit y of a ashish itic infec tion. Test Perfo rmed by [facility] [address] [place] [address] TRICH TERRELL SMEAR NO OVA AND ASHISH ITES SEEN ON TRICH TERRELL STAIN Not Available [address], [address], 09/28/2022 07:03:30 09/21/19 23 09/20/2022 TRICH TERRELL STAIN performing lab see note [facility] [address] [facility] [address] Not Available [address], [address], 09/28/2022 07:03:30 06/30/19 23 06/30/2022 - CT ABD/p el w/con trast [facility] Name: SAMANTA YOO Phys: Lor Ocasio APRN JONAS ET : 1950 Age: 71 [place]: [place] [address] Acct: [id number] Loc: Y.CT PHONE #: [phone] Exam Date: 2022 Status : REG CLI FAX #: Radiol ogy No: [id number] Unit No: [id number] EXAMS: CLINIC AL HISTOR Y: [id number] CT ABD/PE L W/CONT RAST PROCED URE: - CT ABD/PE L W/CONT RAST HISTOR Y: Epigas tric pain and bloati ng. TECHNI QUE: CT images were create d with intrav enous contra st.90 mL of Isovue -300 was inject ed in the left antecu bital fossa IV. Automa romulo exposu re contro l was utiliz ed. COMPAR ELLIOTT: None. FINDIN GS: * LIVER: Multip le hepati c cysts, larges t is in the right hepati c lobe at 3.6 x 2.3 cm no eviden ce for solid lesion * BILIAR Y: Normal * PANCRE :Nor mal. * SPLEEN :Elin l. * KIDNEY S:.Nor mal. * ADRENA LS:.No rmal. * AORTA/ VASCUL AR:.Di ffuse athero sclero tic plaque format ion withou t aneury smal dilati on * RETROP ERITON EUM:.N ormal. * BOWEL/ MESENT POLLY:Mo derate wall thicke ankush at the gastro esopha geal juncti on. The large and small bowel are otherw ise unrema rkable * PELVIS : Normal * ABDOMI NAL WALL:N ormal. 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 The findin gs can be seen with inflam mation and infect ion as well as neopla sm. If no prior exams have been perfor med, a short- term follow -up chest CT is recomm ended PAGE 1 Signed Report (DARCIE NUSTEWART) [facility] Name: SAMANTA YOO [address] [place] [address] Phys: Lor Ocasio APRN JONAS ET : 1950 Age: 71 [place]: [place] [id number] Acct: [id number] Loc: Y.CT PHONE #: [phone] Exam Date: 2022 Status : REG CLI FAX #: Radiol ogy No: [id number] Unit No: [id number] EXAMS: CLINIC AL HISTOR Y: [id number] CT ABD/PE L W/CONT RAST Modera te thicke ankush at the gastro esopha geal juncti on wall along the lesser curvat ure. Endosc opy is recomm ended as neopla nora cannot be exclud ed Report Dictat ed at [facility] Electr onical ly Signed by Ulises PHAM on 2022 at 1641 Report ed and signed by: JAZMINE PHAM M.D. CC: Lor Ocasio APRN Dictat ed Date/T domitila: 2022 (1634) Techno logist : TAYA ALANIS Transc ribed Date/T domitila: 2022 (1634) Transc riptio nist: RAD.VR Electr onic Signat ure Date/T domitila: 2022 (164) Printe d Date/T domitila: 2022 (164) BATCH NO: N/A PAGE 2 Signed Report CC'ed Logic: Orderi ng Provid er: GEE JACOBSON Attend ing Provid er: GEE JACOBSON Referr ing Provid er: GEE JACOBSON Consul ting Provid er: GEE JACOBSON [email or web address] [facility] (Imaging) [address] [place], [address], 07/04/2022 08:08:53 Result Notes None recorded. Medical Equipment None Reported. Allergies No known drug allergies Medications Name Sig Start Date Stop Date Status Note LastModified by Organization Details LastModified Time Prescriptio n - Prior Authorizati on Request active Not Available Not Available N ot Available citalopram 40 mg tablet 1 tablet Orally Once a day active Not Available Not Available No t Available meloxicam 15 mg tablet TAKE 1 TABLET ONCE DAILY active Not Available Not Available No t Available ondansetron HCl 4 mg tablet 07/03 completed Not Available Not Available Not Available prednisone 20 mg tablet TAKE 2 TABLET(S) ONCE DAILY WITH FOOD 07/03 completed Not Available Not Available Not Available sulfamethox azole 800 mg-trimetho prim 160 mg tablet 1 tablet every 12 hours for 1 week, for 1 week of each month- 3 month supply active Not Available Not Available No t Available omeprazole 40 mg capsule,del ayed release active Not Available Not Available Not Available tramadol 50 mg tablet one tab orally as needed (prn) active Not Available Not Available No t Available spironolact one 25 mg tablet TAKE 1 TABLET ONCE DAILY 07/03 completed Not Available Not Available Not Available Celebrex 200 mg capsule 1 capsule Orally Once a day 07/03 completed Not Available Not Available Not Available losartan 100 mg-hydrochl orothiazide 25 mg tablet 1 tablet Orally Once a day 07/03 completed Not Available Not Available Not Available lorazepam 0.5 mg tablet 1 tablet Orally hs 07/03 completed Not Available Not Available Not Available lorazepam 2 mg tablet active Not Available Not Available No t Available benzonatate 100 mg capsule 07/03 completed Not Available Not Available Not Available Gas Relief (simethicon e) 80 mg chewable tablet active Not Available Not Available Not Available levothyroxi ne 125 mcg tablet active Not Available Not Available Not Available promethazin e 25 mg tablet 1 tablet as needed Orally every 6 hours as needed for 1 days 2020 active Not Available Not Available Not Avai lable metronidazo le 0.75 % topical cream 07/03 completed Not Available Not Available Not Available omeprazole 20 mg capsule,del ayed release Take 1 capsule twice a day by oral route for 30 days. 11/07 completed Not Available Not Available Not Available montelukast 10 mg tablet active Not Available Not Available Not Available ibuprofen 600 mg tablet 07/03 completed Not Available Not Available Not Available ipratropium bromide 42 mcg (0.06 %) nasal spray active Not Available Not Available Not Available bromphenira mine-pseudo ephedrine-D M 2 mg-30 mg-10 mg/5 mL oral syrup TAKE 10 ML (ORAL) 3 TIMES PER DAY NEEDED FOR COUGH FOR 7 DAYS 07/03 completed Not Available Not Available Not Available fluticasone propionate 50 mcg/actuati on nasal spray,suspe nsion active Not Available Not Available Not Available ipratropium bromide 21 mcg (0.03 %) nasal spray active Not Available Not Available Not Available amoxicillin 875 mg-potassiu m clavulanate 125 mg tablet 04/06 completed Not Available Not Available Not Available Dulcolax (bisacodyl) 5 mg tablet,lisette yed release as directed Orally The day prior to procedure - 2 tablets at 8 AM and 2 tablets at 6 PM for 1 days 2020 active Not Available Not Available Not Avai lable olmesartan 20 mg-hydrochl orothiazide 12.5 mg tablet active Not Available Not Available Not Available rosuvastati n 20 mg tablet active Not Available Not Available Not Available Crestor 10 mg tablet 1 tablet Orally Once a day 11/07 completed Not Available Not Available Not Available hydrocodone 7.5 mg-acetamin ophen 325 mg/15 mL oral solution 07/03 completed Not Available Not Available Not Available levocetiriz ine 5 mg tablet active Not Available Not Available Not Available oxycodone 10 mg tablet TAKE 1 TABLET 4 TIMES DAILY NEEDED FOR POST SURGICAL PAIN active Not Available Not Available No t Available Mucus Relief ER 600 mg tablet, extended release TAKE 1 TABLET (ORAL) 2 TIMES PER DAY FOR 10 DAYS 07/03 completed Not Available Not Available Not Available Xifaxan 550 mg tablet TAKE 1 TABLET THREE TIMES A DAY FOR 14 DAYS active Not Available Not Available No t Available Vitals Date Recorded Body height Body mass index (BMI) Body weight Heart rate Body temperature Oxygen saturation Oxygen saturation in Arterial blood by Pulse oximetry Systolic blood pressure Diastolic blood pressure Provider Name and Address Organization Details Last Updated DateTime 3 170.18 cm 29.9 kg/m2 91005.1 4 g 88 /min 96.3 [degF] 99 % 99 % 127 mm[Hg] 66 mm[Hg] Adelina Sun [facility] 3 15:14:20 Date Recorded Body height Body mass index (BMI) Body weight Heart rate Oxygen saturation Oxygen saturation in Arterial blood by Pulse oximetry Systolic blood pressure Diastolic blood pressure Provider Name and Address Organization Details Last Updated DateTime 3 170.18 cm 29.3 kg/m2 16184.0 5 g 95 /min 95 % 95 % 107 mm[Hg] 67 mm[Hg] Lisa Marino [facility] 3 13:24:32 Date Recorded Body height Body mass index (BMI) Body weight Heart rate Oxygen saturation Oxygen saturation in Arterial blood by Pulse oximetry Systolic blood pressure Diastolic blood pressure Provider Name and Address Organization Details Last Updated DateTime 3 170.18 cm 29.8 kg/m2 01641.5 5 g 88 /min 99 % 99 % 119 mm[Hg] 65 mm[Hg] Adelina [facility] 3 09:13:30 Date Recorded Body height Body mass index (BMI) Body weight Heart rate Oxygen saturation Oxygen saturation in Arterial blood by Pulse oximetry Systolic blood pressure Diastolic blood pressure Provider Name and Address Organization Details Last Updated DateTime 3 170.18 cm 29.2 kg/m2 19854.3 4 g 88 /min 96 % 96 % 112 mm[Hg] 75 mm[Hg] Adelina Sun [facility] 3 10:01:20 Social History Question Answer Notes LastModified by Organizat ion Details LastModified Time Tobacco Smoking Status Never Smoker Lisa Marino héctor [facility] 11/16/2022 13:25:12 Do You Have An Advance Directive? Yes Information not available 11/16/2022 Are You Blind Or Do You Have Difficulty Seeing? No Information not available 11/16/2022 What Was The Date Of Your Most Recent Tobacco Screening? 07/03/2022 Information not available 11/16/2022 Are You Passively Exposed To Smoke? No Information not available 11/16/2022 Sex: Female Functional Status Question Answer Note LastModified by Organizat ion Details LastModified Time Do you use any illicit or recreational drugs? No Information not available 11/16/2022 What is your level of alcohol consumption? None Information not available 11/16/2022 What is your exercise level? Occasional Information not available 11/16/2022 Mental Status Question Answer Note LastModified by Organization D etails LastModified Time Do you feel stressed (tense, restless, nervous, or anxious, or unable to sleep at night)? [id number] Information not available 11/16/2022 Family History Nothing Reported Notes:No family hx colon can cer. Medical History Condition Response Anxiety/Depression Y Anemia Y Arthritis Y High Cholesterol Y Colon Polyps Y Gastritis Y Acid Reflux (GERD) Y Ulcerative Colititis Y Hypertension Y Hiatal Hernia Y Gynecological HistoryNo gynecological history recorded. Obstetrics History GPAL:G 0 P 0 0 0 0 Past Encounters Encounter ID Performer Location Encounter Start Date Encounter Closed Date Diagnosis/Indication Diagnosis SNOMED-CT Code Diagnosis ICD10 Code Diagnosis Note [id number] Taya Guo APRN [facility] [address] [address] 04/06/2022 08:01:45 04/06/2022 08:41:27 Flatulence symptom 724633727 R14.3 Continue Creon and dietary changes. Chronic constipation 236 368620 K59.09 Samples of 72 Linzess- instructed on use. [id number] Taya Guo APRN [facility] [address] [address] 06/19/2022 14:35:31 06/19/2022 15:42:30 Abdominal bloating 664151160 R14.0 Creon 36 K, 2 with meals and 1 with snacks. Flatulence symptom 94943 8004 R14.3 Epigastric pain 85482244 R10.13 [id number] Taya Guo APRN [facility] [address] [address] 11/16/2022 13:13:57 11/16/2022 13:56:27 Celiac disease 561841683 K90.0 On gluten free, celiac panel negative other low IgA- referring to Dr. Dickerson.Dx many years ago. Abdominal bloating 18465 9008 R14.0 Improved on PPI- also giving trial of Xifaxan. Diarrhea 58729664 R19.7 Will give trial of Xifaxan. Irritable bowel syndrome with diarrhea 176594599 K58.0 Abnormal f indings on diagnostic imaging of lung 165656897 R91.[address] Barber. 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 History of polyp of colon 945612888 Z86.010 4 year colon recall. [id number] Taya Guo APRN [facility] [address] [address] 01/11/2023 08:59:40 01/11/2023 09:58:36 Celiac disease 878858202 K90.0 On gluten free.Dx many years ago. Abdominal bloating 39239 9008 R14.0 Improved on Xifaxan. Diarrhea 24384198 R19.7 Now improved on Xifaxan. Irritable bowel syndrome with diarrhea 582970738 K58.0 Symptoms much improved- suspect element of SIBO. Almost finished with second course of abx- may need to cycle abx- pt to call with update next week. Abnormal f indings on diagnostic imaging of lung 652465851 R91.[address] Barber. Immunoglob ulin A deficiency 62149243 D80.[address] Dickerson. Triplett's esophagus 3029 50857 K22.70 On PPI.On 3 year recall. History of polyp of colon 772991218 Z86.010 5 year colon recall. [id number] Taya Guo APRN [facility] [address] [address] 05/08/2023 09:51:55 05/08/2023 10:31:55 Celiac disease 142782520 K90.0 On gluten free.Dx many years ago. Abdominal bloating 56340 9008 R14.0 Improved. Diarrhea 18637478 R19.7 Suspect SIBO- has improved with cycling Bactrim-RF . Irritable bowel syndrome with diarrhea 471643836 K58.0 Symptoms much improved- suspect element of SIBO. Abnormal f indings on diagnostic imaging of lung 355905496 R91.[address] Barber. Immunoglob ulin A deficiency 46411404 D80.[address] Dickerson. Triplett's esophagus 3029 63835 K22.70 On Omeprazole .On 3 year recall. History of polyp of colon 706562441 Z86.010 5 year colon recall. Small kuldip l bacterial overgrowth syndrome 552812894 A04.9 [id number] Taya Guo APRN [facility] [address] [address] 11/08/2023 08:51:39 11/08/2023 09:34:48 Celiac disease 312311299 K90.0 On gluten free.Dx many years ago. Abdominal bloating 41648 9008 R14.0 Improved. Diarrhea 78398655 R19.7 Suspect SIBO- has improved with cycling Bactrim-RF . Irritable bowel syndrome with diarrhea 187460317 K58.0 Symptoms much improved- suspect element of SIBO. Abnormal f indings on diagnostic imaging of lung 150795086 R91.[address] Barber. Immunoglob ulin A deficiency 20847377 D80.[address] Dickerson. Triplett's esophagus 3029 71407 K22.70 On Omeprazole .On 3 year recall. History of polyp of colon 473893870 Z86.010 5 year colon recall. Small kuldip l bacterial overgrowth syndrome 514119301 A04.9 Health Concerns Section Related Observation LastModified by Organization Detai ls LastModified Time None Recorded Concern Status LastModified by Organization Details LastModified Time None Recorded Advance Directives Directive Y: Payers Encounter Date Sequence Insurance Name Policy Number Policy Zambrano Covered Member ID Zambrano Member ID Guarantor Name 06/19/[address] [facility] (MEDICARE REPLACEMENT/A DVANTAGE - PPO) [id number] Samanta Yoo [id number] Samanta Yoo 11/16/[address] [facility] (MEDICARE REPLACEMENT/A DVANTAGE - PPO) [id number] Samanta J Alejandra [id number] Samanta E Alejandra 01/11/2023 1 [facility] (MEDICARE REPLACEMENT/A DVANTAGE - PPO) [id number] Samanta J Alejandra [id number] Samanta E Monroe 05/08/2023 1 [facility] (MEDICARE REPLACEMENT/A DVANTAGE - PPO) [id number] Samanta J Monroe [id number] Samanta E Alejandra 11/08/[address] [facility] (MEDICARE REPLACEMENT/A DVANTAGE - PPO) [id number] Samanta J Alejandra [id number] Samanta E Alejandra Notes Date Note Type Note Provider Name and Address Organization Details Recorded Time 06/19/2022 text/html Pt worked in for appt today.[facility] continues to have problems with excess gas.Hard to get out and do anything b/c of passing gas. Can't even sit through a advent service.Feels bloated and stomach rumbles.Tried Zenpep.Creon helped a little bit .Tried OTCs- does help part of the time.Has been on Linzess for constipation.Had problems with diarrhea over the holidays- had a few different times, couple of weeks apart.Chart reviewed- states dx with celiac in the s.Does eat lots of dairy.Hurts in epigastric area.Feels miserable at times from all the bloating and gas.No recent xrays. Gastroenterology Exams:EGD:12/2020- Dr. Vogel- large HH, gastritis. Small bowel bx- negative.04/2017- Dr. Vogel- medium size HH.02/2017- Dr. Vogel- GE jx ring, HH, few large ulcers (5-10mm in size) in body of stomach (bx: chronic gastritis). Small bowel bx-- mild increase in intraepithelial lymphocytes.Prior EGD-- had done in the 80s in [place], and another possibly by Dr. Uribe??Colonoscopy:- Dr. Vogel- 3 polyps (adenoma), IH.02/2017- Dr. Vogel- 1 adenoma, IH.10/2013- Dr. Vogel- IH.Prior colon- Dr. Uribe-polyps per pt.M2A:05/2017- pill did not clear stomach. Taya Guo APRN [address] [place], [address], [facility] - [facility] - [facility] 06/19/2022 15:28:38 11/16/2022 text/html PT here for EGD/Colonoscopy follow up.Results were discussed via phone.EGD: irregular zline (bx: Triplett's), small HH. Small bowel bx- negative.Colonoscopy: BRODERICK valencia. Fair prep. Random colon bx- melanosis coli.Also had CT- was referred to Dr. Barber and has had follow up CT's- Last one was a few weeks ago.Diarrhea had improved and was taking Imodium, put only a PRN basis.Stool samples were negative.Celiac panel showed IgA deficiency- has been referred to Dr. Dickerson- has appt in December.Currently- diarrhea is occurring couple times weekly- loose in consistency.Omeprazol e has helped with bloating.PMH- dx with celiac disease in the . Gastroenterology Exams:EGD:08/2022- Dr. Vogel- irregular zline (bx: Triplett's), small HH. Small bowel bx- negative.12/2020- Dr. Vogel- large HH, gastritis. Small bowel bx- negative.04/2017- Dr. Vogel- medium size HH.02/2017- Dr. Vogel- GE jx ring, HH, few large ulcers (5-10mm in size) in body of stomach (bx: chronic gastritis). Small bowel bx-- mild increase in intraepithelial lymphocytes.Prior EGD-- had done in the 80s in [place], and another possibly by Dr. Uribe??Colonoscopy:- Dr. Vogel- BRODERICK valencia. Fair prep. Random colon bx- melanosis coli.12/2020- Dr. Vogel- 3 polyps (adenoma), IH.02/2017- Dr. Vogel- 1 adenoma, IH.10/2013- Dr. oVgel- IH.Prior colon- Dr. Uribe-polyps per pt.M2A:05/2017- pill did not clear stomach. Taya Guo, VENDETTE [address] [place], [address], [place] - [facility] - [facility] 11/16/2022 13:48:21 01/11/2023 text/html Pt here for med trial follow up.Was prescribed Xifaxan on last visit.States worked well.Took 14 day course.Got RF and almost finished with second course.Bloating and diarrhea resolved.Saw Dr. Dickerson- did more testing- all OK per pt. Gastroenterology Exams:EGD:08/2022- Dr. Vogel- irregular zline (bx: Triplett's), small HH. Small bowel bx- negative.12/2020- Dr. Vogel- rossy HH, gastritis. Small bowel bx- negative.04/2017- Dr. Vogel- medium size HH.02/2017- Dr. Vogel- GE jx ring, HH, few large ulcers (5-10mm in size) in body of stomach (bx: chronic gastritis). Small bowel bx-- mild increase in intraepithelial lymphocytes.Prior EGD-- had done in the 80s in [place], and another possibly by Dr. Uribe??Colonoscopy:- Dr. Vogel- tics, IH. Fair prep. Random colon bx- melanosis coli.12/2020- Dr. Vogel- 3 polyps (adenoma), IH.02/2017- Dr. Vogel- 1 adenoma, IH.10/2013- Dr. Vogel- IH.Prior colon- Dr. Uribe-polyps per pt.M2A:05/2017- pill did not clear stomach. Taya Guo, VENDETTE [address] [place] [address], [phone], [facility] 01/11/2023 09:57:33 05/08/2023 text/html Pt here for chec k up.After last visit- pt called and symptoms returned after being off abx.Recommended cycling abx 1 week of the month- Bactrim escribed.PT states doing better.Diarrhea resolved, even little constipated.Gas has improved overall. Gastroenterology Exams:EGD:08/2022- Dr. Vogel- irregular zline (bx: Triplett's), small HH. Small bowel bx- negative.12/2020- Dr. Vogel- rossy HH, gastritis. Small bowel bx- negative.04/2017- Dr. Vogel- medium size HH.02/2017- Dr. Vogel- GE jx ring, HH, few large ulcers (5-10mm in size) in body of stomach (bx: chronic gastritis). Small bowel bx-- mild increase in intraepithelial lymphocytes.Prior EGD-- had done in the 80s in [place], and another possibly by Dr. Uribe??Colonoscopy:- Dr. Carlos valencia, IH. Fair prep. Random colon bx- melanosis coli.12/2020- Dr. Vogel- 3 polyps (adenoma), IH.02/2017- Dr. Vogel- 1 adenoma, IH.10/2013- Dr. Vogel- IH.Prior colon- Dr. Uribe-polyps per pt.M2A:05/2017- pill did not clear stomach. Taya Guo, VENDETTE [address] [place], [address], [facility] 05/08/2023 10:28:42 11/08/2023 text/html Pt here for chec k up.Since last visit- had back surgery- about 1 month ago.Otherwise doing OK.Feels like cycling abx is helping.Occl constipation now- stool softeners help.Had to hold abx prior to back surgery- diarrhea returned.Then some constipation after surgery.Still seeing Dr. Barber- had appt earlier this week. 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 Dickerson- once yearly. Gastroenterology Exams:EGD:08/2022- Dr. Vogel- irregular zline (bx: Triplett's), small HH. Small bowel bx- negative.12/2020- Dr. Vogel- large HH, gastritis. Small bowel bx- negative.04/2017- Dr. Vogel- medium size HH.02/2017- Dr. Vogel- GE jx ring, HH, few large ulcers (5-10mm in size) in body of stomach (bx: chronic gastritis). Small bowel bx-- mild increase in intraepithelial lymphocytes.Prior EGD-- had done in the s in [place], and another possibly by Dr. Uribe??Colonoscopy:- Dr. Carlos valencia, IH. Fair prep. Random colon bx- melanosis coli.12/2020- Dr. Vogel- 3 polyps (adenoma), IH.02/2017- Dr. Vogel- 1 adenoma, IH.10/2013- Dr. Vogel- IH.Prior colon- Dr. Uribe-polyps per pt.M2A:05/2017- pill did not clear stomach. Taya Guo, VENDETTE [address] [place] [address], [phone], [facility] 11/08/2023 09:34:33 OBGyn Episode No OBEpisode recorded.
[2024-11-04 11:33] LABS: Basophils % 0.8 % (0.1-2.0); Eosinophils # 0.1 Kmm3 (0.0-0.4); Hematocrit 37.6 % (37.0-47.0); Hemoglobin 11.6 g/dL (12.2-16.2); Immature Granulocytes # 0.01 10^3uL; Immature Granulocytes % 0.2 %; Lymphocytes # 1.5 K/mm3 (0.7-4.5); Lymphocytes % 31.6 % (10-50); Mean Corpuscular HGB Conc 30.9 g/dL (31.8-35.4); Mean Corpuscular Hemoglobin 27.9 pg (27.0-31.2); Mean Corpuscular Volume 90.4 fl (81-99); Mean Platelet Volume 10.7 fl (7.4-10.4); Monocytes # 0.4 K/mm3 (0.1-1.0); Monocytes % 9.3 % (1.7-9.3); Neutrophils # 2.6 K/mm3 (1.8-7.8); Neutrophils % 55.1 % (37.0-80.0); Nucleated Red Blood Cells # 0 10^3/uL; Nucleated Red Blood Cells % 0 %; Platelet Count 158 K/mm3 (142-424); Red Blood Count 4.16 M/mm3 (4.20-5.40); Red Cell Distribution Width 16.1 % (11.5-17.5); Red Cell Distribution Width-SD 53.6 fL; White Blood Count 4.7 K/mm3 (4.8-10.8)
[2024-11-04 12:18] LABS: Iron 113 ug/dL (37-170)
[2024-11-04 12:28] LABS: Total Iron Binding Capacity 350 ug/dL (265-497)
== END 2024-11-04 23:59 | disposition home or self-care (01) ==
PROVIDERS: PCP Family Medicine; Visit Provider Internal Medicine Medical Oncology
DX: D64.9 Anemia, unspecified (principal)
CPT/HCPCS: 36415; 82728; 83540; 83550; 85025